=== PATIENT | female | born 1995 | race African-American/Black ===

== ENCOUNTER 2019-09-12 13:13 | Emergency (ER) | payer BC, OTHER ==
[2019-09-12 15:35] LABS: Absolute Lymphocytes (CBC) 2.2 K/uL (0.7-4.9); Basophils % 0.5 % (0-1.3); Hematocrit 41.1 % (36.0-45.0); Lymphocytes % 15.8 % (15.3-44.8); MPV 9.5 fL (7.6-11.3); RBC Red Blood Cell Count 4.83 M/uL (3.86-4.86)
[2019-09-12 16:11] LABS: BUN Blood Urea Nitrogen 8 mg/dL (7-18); Bicarbonate 25 mmol/L (21-32); Glucose Level 85 mg/dL (74-106); HCG, Quantitative 18392 mIU/mL (1-3); Potassium 3.6 mmol/L (3.5-5.1); Sodium Level 135 mmol/L (136-145)
--- NOTE | 2019-09-12 16:35 | RAD REPORT ---
EXAM DESCRIPTION: US - Transvaginal OB - 09/12/2019 4:23 pm CLINICAL HISTORY: ABD CRAMPING, COMPARISON: No comparisons FINDINGS: A single gestational sac is seen within the uterus. The shape of the sac is within normal limits for gestational age. Within the sac is a single pole with crown-rump length of 2 mm, cor relating to estimated gestational age of 6 weeks 0 days. Estimated date of delivery is 05/07/2020. Despite prolonged sonographic evaluation heart could not yet be seen. The placenta is not yet developed due to early gestational age. The maternal adnexa and ovaries are within normal limits. Normal Doppler blood flow was demonstrated to both ovaries. IMPRESSION: Six weeks 0 days early IUP findings are present. heart tones were not seen, which can be a normal finding at this gestational age. Advise serial HCG measurements and follow-up ultraso und in 7-10 days.
[2019-09-12 17:08] VITALS: TEMP 98.6
[2019-09-12 17:10] VITALS: O2SAT 100
[2019-09-12 17:13] VITALS: BP 107/73
[2019-09-12 21:57] LABS: Urine Blood TRACE (NEG); Urine Glucose NEGATIVE (NEG); Urine Protein NEGATIVE (NEG); Urine Specific Gravity 1.025 (1.005-1.030)
--- NOTE | 2019-09-14 18:06 | ER ---
Nurse's Notes [facility] Name: Kyleigh Akbar Age: 24 yrs Sex: Female : 1995 Arrival Date: 09/12/2019 Time: 13:16 Bed 16 Private MD: Diagnosis: Abdominal and pelvic pain;6 wk, 2 d IUP Presentation: 09/11 13:22 Chief complaint: Patient states: found out she is 4 weeks , for about 2 weeks em has been having severe suprapubic pain around the same time [id number], denies bleeding/discharge, has had a previous miscarriage at 3 months, denies N/V or fever. Coronavirus screen: Proceed with normal triage. Patient denies a cough. Patient denies shortness of breath or difficulty breathing. Patient denies measured and/or subjective temperature greater than 100.4F prior to today's visit. Patient denies travel on a cruise ship or to a country the [facility] currently lists as an affected area. Patient denies contact with known and/or suspected case of COVID-19. Ebola Screen: Patient negative for fever greater than or equal to 101.5 degrees Fahrenheit, and additional compatible Ebola Virus Disease symptoms Patient denies exposure to infectious person. Patient denies travel to an Ebola-affected area in the 21 days before illness onset. No symptoms or risks identified at this time. Initial Sepsis Screen: Does the patient meet any 2 criteria? No. Patient's initial sepsis screen is negative. Does the patient have a suspected source of infection? No. Patient's initial sepsis screen is negative. Risk Assessment: Do you want to hurt yourself or someone else? Patient reports no desire to harm self or others. 13:22 Method Of Arrival: Ambulatory em 13:22 Acuity: AGNES 3 em 13:27 Onset of symptoms was August 25, 2019. 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 - Social history:: Smoking status: Patient denies any tobacco usage or history of. Screenin:35 Abuse screen: Denies threats or abuse. Denies injuries from another. Nutritional ca1 screening: No deficits noted. Tuberculosis screening: No symptoms or risk factors identified. Fall Risk None identified. Assessment: 13:35 General: Appears in no apparent distress. comfortable, Behavior is calm, cooperative, ca1 appropriate for age. Pain: Complains of pain in suprapubic area, right lower quadrant and left lower quadrant Pain radiates to low back area Pain currently is 4 out of 10 on a pain scale. Pain began 2 WEEKS. Neuro: Level of Consciousness is awake, alert, obeys commands, Oriented to person, place, time, situation. Cardiovascular: Heart tones S1 S2 present Capillary refill < 3 seconds Patient's skin is warm and dry. Respiratory: Airway is patent Respiratory effort is even, unlabored, Breath sounds are clear bilaterally. GI: Abdomen is round non-distended, Bowel sounds present X 4 quads. Abd is soft and non tender X 4 quads. : No signs and/or symptoms were reported regarding the genitourinary system. : Urine is clear. EENT: No signs and/or symptoms were reported regarding the EENT system. Derm: Skin is intact, is healthy with good turgor, Skin is pink, warm \T\ dry. Musculoskeletal: Circulation, motion, and sensation intact. Capillary refill < 3 seconds. 14:30 Reassessment: Patient appears in no apparent distress at this time. Patient and/or ca1 family updated on plan of care and expected duration. Pain level reassessed. Patient is alert, oriented x 3, equal unlabored respirations, skin warm/dry/pink. 15:30 Reassessment: Patient appears in no apparent distress at this time. Patient is alert, ca1 oriented x 3, equal unlabored respirations, skin warm/dry/pink. 15:45 Reassessment: US at bedside. ca1 16:35 Reassessment: Patient appears in no apparent distress at this time. Patient and/or ca1 family updated on plan of care and expected duration. Pain level reassessed. Patient is alert, oriented x 3, equal unlabored respirations, skin warm/dry/pink. Vital Signs: 13:22 BP 128 / 88; Pulse 84; Resp 18; Temp 98.6(O); Pulse Ox 99% on R/A; Weight 83.46 kg; em Height 5 ft. 2 in. (157.48 cm); Pain 2/10; 14:06 BP 112 / 76; Pulse 81; Resp 16 S; Pulse Ox 100% on R/A; ca1 15:00 BP 118 / 82; Pulse 82; Resp 16 S; Pulse Ox 100% on R/A; ca1 16:35 BP 107 / 73; Pulse 81; Resp 16 S; Pulse Ox 100% on R/A; ca1 13:22 Body Mass Index 33.65 (83.46 kg, 157.48 cm) em ED Course: 13:16 Patient arrived in ED. as 13:19 Savage El MD is Attending Physician. kdr 13:26 Triage completed. em 13:26 Arm band placed on. em 13:34 Mirtha Mckeon, RN is Primary Nurse. ca1 13:35 Patient has correct armband on for positive identification. Bed in low position. Call ca1 light in reach. Side rails up X 1. Pulse ox on. NIBP on. Warm blanket given. 13:46 Urine collected: clean catch specimen, clear. em 15:19 Inserted saline lock: 20 gauge in left antecubital area, using aseptic technique. dh4 16:18 Ultrasound completed. Patient tolerated well. Notified ED Physician gregorio. sg3 16:23 US Transvaginal Ob In Process Unspecified. EDMS 16:59 No provider procedures requiring assistance completed. IV discontinued, intact, em bleeding controlled, No redness/swelling at site. Pressure dressing applied. Administered Medications: No medications were administered Outcome: 16:37 Discharge ordered by . kdr 16:59 Discharged to home ambulatory. em 16:59 Condition: good 16:59 Discharge instructions given to patient, Instructed on discharge instructions, follow up and referral plans. Demonstrated understanding of instructions, follow-up care. 17:00 Patient left the ED. em Signatures: Dispatcher [employer] EDMS Savage El MD MD kdr Munoz, Edgar RN RN em Amber Brown Sarah sg3 Mirtha Mckeon RN RN ca1 [place] 4 Corrections: (The following items were deleted from the chart) 13:28 13:22 Chief complaint: Patient states: found out she is 4 weeks , ever since em has been having severe suprapubic pain around the same time [id number], denies bleeding/discharge, has had a previous miscarriage at 3 months, denies N/V or fever em
--- NOTE | 2019-09-14 18:07 | EDPHYS ---
Physician Documentation [facility] Name: Kyleigh Akbar Age: 24 yrs Sex: Female : 1995 Arrival Date: 09/12/2019 Time: 13:16 Bed 16 Private MD: ED Physician Savage El HPI: 09/11 17:34 This 24 yrs old Black Female presents to ER via Ambulatory with complaints of Abdominal kdr Cramping - preg. 17:36 The patient presents with abdominal pain in the lower abdomen. Onset: The kdr symptoms/episode began/occurred gradually, 2 week(s) ago. The symptoms do not radiate. Associated signs and symptoms: none. The symptoms are described as achy, crampy, dull, vague, waxing/waning, had been sharp until a few days ago. Modifying factors: The symptoms are alleviated by nothing. Severity of pain: At its worst the pain was mild moderate just prior to arrival, in the emergency department the pain is unchanged. The patient has not experienced similar symptoms in the past. The patient has not recently seen a physician. 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 - Social history:: Smoking status: Patient denies any tobacco usage or history of. ROS: 17:36 Constitutional: Negative for fever, chills, and weight loss, Eyes: Negative for injury, kdr pain, redness, and discharge, ENT: Negative for injury, pain, and discharge, Neck: Negative for injury, pain, and swelling, Cardiovascular: Negative for chest pain, palpitations, and edema, Respiratory: Negative for shortness of breath, cough, wheezing, and pleuritic chest pain, Back: Negative for injury and pain, : Negative for injury, bleeding, discharge, and swelling, MS/Extremity: Negative for injury and deformity, Skin: Negative for injury, rash, and discoloration, Neuro: Negative for headache, weakness, numbness, tingling, and seizure activity. Psych: Negative for depression, anxiety, suicide ideation, homicidal ideation, and hallucinations, Allergy/Immunology: Negative for hives, rash, and allergies, Endocrine: Negative for neck swelling, polydipsia, polyuria, polyphagia, and marked weight changes, Hematologic/Lymphatic: Negative for swollen nodes, abnormal bleeding, and unusual bruising. 17:36 Abdomen/GI: Positive for abdominal pain, Negative for nausea, vomiting, and diarrhea, abdominal cramps, abdominal distension, black/tarry stool, rectal pain, rectal bleeding, bowel incontinence. Exam: 17:36 Constitutional: This is a well developed, well nourished patient who is awake, alert, kdr and in no acute distress. Head/Face: Normocephalic, atraumatic. Eyes: Pupils equal round and reactive to light, extra-ocular motions intact. Lids and lashes normal. Conjunctiva and sclera are non-icteric and not injected. Cornea within normal limits. Periorbital areas with no swelling, redness, or edema. Neck: Trachea midline, no thyromegaly or masses palpated, and no cervical lymphadenopathy. Supple, full range of motion without nuchal rigidity, or vertebral point tenderness. No Meningismus. Chest/axilla: Normal chest wall appearance and motion. Nontender with no deformity. No lesions are appreciated. Cardiovascular: Regular rate and rhythm with a normal S1 and S2. No gallops, murmurs, or rubs. Normal PMI, no JVD. No pulse deficits. Respiratory: Lungs have equal breath sounds bilaterally, clear to auscultation and percussion. No rales, rhonchi or wheezes noted. No increased work of breathing, no retractions or nasal flaring. Back: No spinal tenderness. No costovertebral tenderness. Full range of motion. Skin: Warm, dry with normal turgor. Normal color with no rashes, no lesions, and no evidence of cellulitis. MS/ Extremity: Pulses equal, no cyanosis. Neurovascular intact. Full, normal range of motion. Neuro: Awake and alert, GCS 15, oriented to person, place, time, and situation. Cranial nerves II-XII grossly intact. Motor strength 5/5 in all extremities. Sensory grossly intact. Cerebellar exam normal. Normal gait. Psych: Awake, alert, with orientation to person, place and time. Behavior, mood, and affect are within normal limits. 17:36 Abdomen/GI: Inspection: abdomen appears normal, Bowel sounds: normal, Palpation: soft, nontender, mass, is not appreciated, rebound tenderness, is not appreciated, voluntary guarding, is not appreciated. Vital Signs: 13:22 BP 128 / 88; Pulse 84; Resp 18; Temp 98.6(O); Pulse Ox 99% on R/A; Weight 83.46 kg; em Height 5 ft. 2 in. (157.48 cm); Pain 2/10; 14:06 BP 112 / 76; Pulse 81; Resp 16 S; Pulse Ox 100% on R/A; ca1 15:00 BP 118 / 82; Pulse 82; Resp 16 S; Pulse Ox 100% on R/A; ca1 16:35 BP 107 / 73; Pulse 81; Resp 16 S; Pulse Ox 100% on R/A; ca1 13:22 Body Mass Index 33.65 (83.46 kg, 157.48 cm) em MDM: 16:33 Data reviewed: vital signs, nurses notes, lab test result(s), radiologic studies. kdr Counseling: I had a detailed discussion with the patient and/or guardian regarding: the historical points, exam findings, and any diagnostic results supporting the discharge/admit diagnosis, lab results, radiology results, the need for outpatient follow up. ED course: 6 wk, 2D IUP per tech. Some fluid around right ovary but otherwise normal IUP. 16:37 Patient medically screened. [facility] 09/11 14:02 Order name: Urine Dipstick--Ancillary (enter results) eb 09/11 14:02 Order name: Urine --Ancillary (enter results) eb 09/11 15:01 Order name: Quantitative Hcg kdr 09/11 15:01 Order name: Abo/rh Typing kdr 09/11 15:01 Order name: Basic Metabolic Panel kdr 09/11 15:01 Order name: CBC with Diff kdr 09/11 13:50 Order name: Urine Dipstick-Ancillary (obtain specimen); Complete Time: 13:50 ca1 09/11 13:50 Order name: Urine Test (obtain specimen); Complete Time: 13:50 ca1 09/11 15:01 Order name: US Transvaginal Ob [facility] 09/11 15:01 Order name: IV Saline Lock; Complete Time: 15:37 kdr 09/11 15:01 Order name: Labs collected and sent; Complete Time: 15:37 kdr 09/11 15:01 Order name: NPO; Complete Time: 15:37 kdr Administered Medications: No medications were administered Disposition: 09/12/19 16:37 Discharged to Home. Impression: Abdominal and pelvic pain, 6 wk, 2 d IUP. - Condition is Stable. - Discharge Instructions: Abdominal Pain, Adult, [id number], Abdominal Pain During , [id number]. - Medication Reconciliation Form, Thank You Letter form. - Follow up: Private Physician; When: 2 - 3 days; Reason: If symptoms return, Further diagnostic work-up, Recheck today's complaints, Continuance of care, Re-evaluation by your physician. - Problem is new. - Symptoms have improved. Signatures: Dispatcher [employer] Savage Hensley MD MD kdr Marciano Nazario, RN RN em Linda, Mirtha RN RN ca1 Corrections: (The following items were deleted from the chart) 17:00 16:37 09/12/2019 16:37 Discharged to Home. Impression: Abdominal and pelvic pain; 6 wk, em 2 d IUP. Condition is Stable. Forms are Medication Reconciliation Form, Thank You Letter, Antibiotic Education, Prescription Opioid Use. Follow up: Private Physician; When: 2 - 3 days; Reason: If symptoms return, Further diagnostic work-up, Recheck today's complaints, Continuance of care, Re-evaluation by your physician. Problem is new. Symptoms have improved. kdr
== END 2019-09-12 17:00 | disposition home or self-care (01) ==
LOC: ER 13:13
DX: O26.891 Other specified pregnancy related conditions, first trimester (principal); Z3A.01 Less than 8 weeks gestation of pregnancy; Z88.0 Allergy status to penicillin
CPT/HCPCS: 36415; 76817; 80048; 81003; 81025; 84702; 85025; 86900; 86901; 99284

== ENCOUNTER 2021-05-05 08:07 | Emergency (ER) | payer BC ==
--- OUTSIDE RECORDS SUMMARY | 2021-05-05 08:11 | XMS REPORT | Continuity of Care Document ---
:1995 Author Organization [facility] t Address [address] [place] [address] Care Team Providers Name Role Phone Yong MUELLER Primary Care Physician Unavailable Nina GONZALEZ Attending Clinician Unavailable Nurse, Pob Immunization Attending Clinician Unavailable Chet Cali DO Attending Clinician CHET CALI Attending Clinician Unavailable Ángel CENTENO Attending Clinician ÁNGEL Attending Clinician Unavailable Wiliam CENTENO Attending Clinician Provider, Db [facility]gent [facility] Attending Clinician Unavailable Altaf BEHAVIORAL SPECIALIST Attending Clinician ALTAF Attending Clinician Unavailable Ebrahim BEHAVIORAL SPECIALIST Attending Clinician Unknown Attending Clinician Unavailable UNKNOWN Attending Clinician Unavailable Nba Quinteros MD Attending Clinician HILLARY_Nina Attending Clinician Unavailable SHIVANI Attending Clinician Unavailable Nina GASPAR Attending Clinician Unavailable Maureen English Attending Clinician [phone] Yong MUELLER Attending Clinician Unavailable Cindy DE LEÓN Attending Clinician Unavailable RENNY CENTENO Attending Clinician ANISH CENTENO Attending Clinician HILLARY_Nina Admitting Clinician Unavailable Payers Payer Name Policy Type Policy Number Effective Date Expiration Date S ann[place] [id number] 2018 [place] 00:[place]:00 (PPO) BCBS OF [id number] [facility] Problems Condition Condition Condition Status Onset Resolution Last Treating Co mments Source Name Details Category Date Date Treatment Clinician Date Obesity Obesity Disease Active Univers (BMI (BMI 9-28 ity of 30-39.9) 30-39.9) 00:00: [place] 00 Medical Branch Anxiety Anxiety Disease Active 2019- Univers 11-24 ity of 00:00: [place] 00 Medical Branch Allergies, Adverse Reactions, Alerts Allergy Allergy Status Severity Reaction(s) Onset Inactive Treating Comm ents Source Name Type Date Date Clinician Penicill Propensi Active Unknown - Uni vers in ty to See comments 11-24 ity of adverse 00:00: [place] reaction 00 Medical s Branch PENICILL DRUG Active Unknown-Cmnt Un david IN INGREDI 8 ity of 00:00: [place] 00 Medical Branch NO KNOWN Drug Active Univers ALLERGIE Class ity of S [place] [facility] Social History Social Habit Start Date Stop Date Quantity Comments Source Exposure to Not sure [facility] SARS-CoV-2 (event) Medica l Branch History [facility] Alcohol Comment Medical B ranch Alcohol intake 2021-02-20 2021-02-20 .57 /d [facility] 00:00:00 00:00:00 Medical Branch History [facility] 2019-11-25 2019-11-25 1 [facility] Alcohol Frequency 00:00:00 00:00:00 Medical Branch History [facility] 2019-11-25 2019-11-25 99 [facility] Alcohol Std Drinks 00:00:00 00:00:00 Medica l Branch History [facility] 2019-11-25 2019-11-25 1 [facility] Alcohol Binge 00:00:00 00:00:00 Medical [facility] Tobacco use and 2018-11-24 2018-11-24 Never used [facility] exposure 00:00:00 00:00:00 Medical Branch Sex [birth year] [facility] 00:00:00 00:00:00 Medical Branch Smoking Status Start Date Stop Date Source Never smoker [facility] Medical Branch Medications Ordered Filled Start Stop Current Ordering Indication Dosage Frequency Signature Comments Components Source Medication Medication Date Date Medication? Clinician (SIG) Name Name SERTRALINE 2020-04 Yes [id number] TAKE 1 U nivers 100 mg 1-11 TABLET BY ity of tablet 00:00: MOUTH [place] 00 EVERY DAY Medical Branch SERTRALINE 2020-04 Yes [id number] TAKE 1 U nivers 100 mg 1-11 TABLET BY ity of tablet 00:00: MOUTH [place] 00 EVERY DAY Medical Branch SERTRALINE 2020-04 Yes [id number] TAKE 1 U nivers 100 mg 1-11 TABLET BY ity of tablet 00:00: MOUTH [place] 00 EVERY DAY Medical Branch albuterol 2020-04- No [id number] 2{puff} Univers (VENTOLIN) 04-22 ity of inhaler 2 18:45: 17:51 [place] Puff 00 :00 Medical Branch albuterol 2020-04- No [id number] 2{puff} 2 Puff, Univers (VENTOLIN) 04-22 Inhalation it y of inhaler 2 18:45: 17:51 [place] 1 [place] :[place] dose, On Medical Mon Branch 02/20/21 at 1245, Routine azelastine 2020-04 Yes [id number] 1{spray Use 1 Univers 137 mcg 1-08 } [place] in ity of (0.1 %) 00:00: each [place] nasal spray 00 nostril 2 Med ical (two) Branch times daily. Use in each nostril as directed benzonatate 2020-04 Yes [id number] 200mg Take 2 Univers 100 mg 1-08 capsules ity of capsule 00:00: [place] (two) Medical times Branch daily as needed for Cough. codeine-gua 2020-04 Yes 5mL Take 5 mL U nivers ifenesin 1-08 by mouth ity of 10-100 mg/5 00:00: every 6 Gurinder as mL oral 00 (six) Medical solution hours as Branch needed for Cough. Indication s: cough guaiFENesin 2020-04 Yes [id number] 400mg Take 1 Univers 400 mg 1-08 tablet by ity of tablet 00:00: mouth [place] 00 every 4 Medical (four) Branch hours as needed for Cough. azelastine 2020-04 Yes [id number] 1{spray Use 1 Univers 137 mcg 1-08 } [place] in ity of (0.1 %) 00:00: each [place] nasal spray 00 nostril 2 Med ical (two) Branch times daily. Use in each nostril as directed benzonatate 2020-04 Yes [id number] 200mg Take 2 Univers 100 mg 1-08 capsules ity of capsule 00:00: [place] (two) Medical times Branch daily as needed for Cough. codeine-gua 2020-04 Yes 5mL Take 5 mL U nivers ifenesin 1-08 by mouth ity of 10-100 mg/5 00:00: every 6 Gurinder as mL oral 00 (six) Medical solution hours as Branch needed for Cough. Indication s: cough guaiFENesin 2020-04 Yes [id number] 400mg Take 1 Univers 400 mg 1-08 tablet by ity of tablet 00:00: mouth [place] 00 every 4 Medical (four) Branch hours as needed for Cough. azelastine 2020-04 Yes [id number] 1{spray Use 1 Univers 137 mcg 1-08 } [place] in ity of (0.1 %) 00:00: each [place] nasal spray 00 nostril 2 Med ical (two) Branch times daily. Use in each nostril as directed benzonatate 2020-04 Yes [id number] 200mg Take 2 Univers 100 mg 1-08 capsules ity of capsule 00:00: [place] 2 [place] 00 (two) Medical times Branch daily as needed for Cough. codeine-gua 2020-04 Yes 5mL Take 5 mL U nivers ifenesin 1-08 by mouth ity of 10-100 mg/5 00:00: every 6 Gurinder as mL oral 00 (six) Medical solution hours as Branch needed for Cough. Indication s: cough guaiFENesin 2020-04 Yes [id number] 400mg Take 1 Univers 400 mg 1-08 tablet by ity of tablet 00:00: mouth [place] 00 every 4 Medical (four) Branch hours as needed for Cough. amoxicillin 2020-04- Yes [id number] 1{tbl} Take 1 Univers -clavulanat 1-08 11-16 tablet by it y of e 00:00: 05:59 mouth 2 [place] (AUGMENTIN) 00 :00 (two) Medical 875-125 mg times Branch per tablet daily for 7 days. bromphenira 2020-04 Yes [id number] 5mL Take 5 mL Univers mine-pseudo 0-18 by mouth 4 it y of ephedrine-D 00:00: (four) [place] (BROMFED 00 times Medical DM) 2-30-10 daily as Bran ch mg/5 mL needed for syrup Congestion /Allergies or Cough. bromphenira 2020-04 Yes [id number] 5mL Take 5 mL Univers mine-pseudo 0-18 by mouth 4 it y of ephedrine-D 00:00: (four[place] (BROMFED 00 times Medical DM) 2-30-10 daily as Bran ch mg/5 mL needed for syrup Congestion /Allergies or Cough. bromphenira 2020-04 Yes [id number] 5mL Take 5 mL Univers mine-pseudo 0-18 by mouth 4 it y of ephedrine-D 00:00: (four[place] (BROMFED 00 times Medical DM) 2-30-10 daily as Bran ch mg/5 mL needed for syrup Congestion /Allergies or Cough. bromphenira 2020-04- No [id number] 5mL Take 5 mL Univers mine-pseudo 0-18 11-08 by mouth 4 i ty of ephedrine-D 00:00: 00:00 (four) Gurinder as M (BROMFED 00 :00 times Medical DM) 2-30-10 daily as Bran ch mg/5 mL needed for syrup Congestion /Allergies or Cough. penicillin 2020-04- No [id number] 500mg Take 1 Univers v potassium 0-14 10-25 tablet by it y of 500 mg 00:00: 04:59 mouth 2 [place] tablet 00 :00 (two) Medical times Branch daily for 10 days. penicillin 2020-04- No [id number] 500mg Take 1 Univers v potassium 0-14 10-25 tablet by it y of 500 mg 00:00: 04:59 mouth 2 [place] tablet 00 :00 (two) Medical times Branch daily for 10 days. penicillin 2020-04- No [id number] 500mg Take 1 Univers v potassium 0-14 10-25 tablet by it y of 500 mg 00:00: 04:59 mouth 2 [place] tablet 00 :00 (two) Medical times Branch daily for 10 days. penicillin 2020-04- No [id number] 500mg Take 1 Univers v potassium 0-14 10-25 tablet by it y of 500 mg 00:00: 04:59 mouth 2 [place] tablet 00 :00 (two) Medical times Branch daily for 10 days. SERTraline Yes [id number] 100mg Take 1 Univers (ZOLOFT) 9-30 tablet by ity of 100 mg 00:00: mouth [place] tablet 00 daily. Medical Branch SERTraline 2020-0 Yes [id number] 100mg Take 1 Univers (ZOLOFT) 9-30 tablet by ity of 100 mg 00:00: mouth [place] tablet 00 daily. Medical Branch methylPREDN 2020-0 Yes Univer s ISolone 4 9-30 ity of mg tablets 00:00: [place] 00 Medical Branch SERTraline 2020-0 Yes [id number] 100mg Take 1 Univers (ZOLOFT) 9-30 tablet by ity of 100 mg 00:00: mouth [place] tablet 00 daily. Medical Branch methylPREDN 2020-0 Yes Univer s ISolone 4 9-30 ity of mg tablets 00:00: [place] 00 Medical Branch SERTraline 2020-0 Yes [id number] 100mg Take 1 Univers (ZOLOFT) 9-30 tablet by ity of 100 mg 00:00: mouth [place] tablet 00 daily. Medical Branch methylPREDN 2020-0 Yes Univer s ISolone 4 9-30 ity of mg tablets 00:00: [place] 00 [facility] Branch SERTraline 2020-0 Yes [id number] 100mg Take 1 Univers (ZOLOFT) 9-30 tablet by ity of 100 mg 00:00: mouth [place] tablet 00 daily. Medical Branch methylPREDN 2020-0 Yes Univer s ISolone 4 9-30 ity of mg tablets 00:00: [place] 00 [facility] Branch SERTraline 2020-0 Yes [id number] 100mg Take 1 Univers (ZOLOFT) 9-30 tablet by ity of 100 mg 00:00: mouth [place] tablet 00 daily. Medical Branch methylPREDN 2020-0 Yes Univer s ISolone 4 9-30 ity of mg tablets 00:00: [place] 00 Medical Branch methylPREDN 2020-0 Yes Univer s ISolone 4 9-30 ity of mg tablets 00:00: [place] 00 Medical Branch methylPREDN 2020-0 Yes Univer s ISolone 4 9-30 ity of mg tablets 00:00: [place] 00 Medical Branch methylPREDN 2020-0 Yes Univer s ISolone 4 9-30 ity of mg tablets 00:00: [place] 00 Medical Branch SERTraline 2020-0 2021- No [id number] 100mg Take 1 Univers (ZOLOFT) 9-30 11-11 tablet by ity o f 100 mg 00:00: 00:00 mouth [place] tablet 00 :00 daily. Medical Branch drospirenon 2020-0 Yes [id number] 1{tbl} Take 1 Univers e-ethinyl 9-28 tablet by ity o f estradioL 00:00: mouth [place] ([facility],) 00 daily. Medical 3-0.02 mg Branch per tablet drospirenon 2020-0 Yes [id number] 1{tbl} Take 1 Univers e-ethinyl 9-28 tablet by ity o f estradioL 00:00: mouth [place] ([facility],) 00 daily. Medical 3-0.02 mg Branch per tablet drospirenon 2020- Yes [id number] 1{tbl} Take 1 Univers e-ethinyl 9-28 tablet by ity o f estradioL 00:00: mouth [place] ([facility],) 00 daily. Medical 3-0.02 mg Branch per tablet drospirenon 2020- Yes [id number] 1{tbl} Take 1 Univers e-ethinyl 9-28 tablet by ity o f estradioL 00:00: mouth [place] ([facility],) 00 daily. Medical 3-0.02 mg Branch per tablet drospirenon 2020- Yes [id number] 1{tbl} Take 1 Univers e-ethinyl 9-28 tablet by ity o f estradioL 00:00: mouth [place] ([facility],) 00 daily. Medical 3-0.02 mg Branch per tablet drospirenon 2020-0 Yes [id number] 1{tbl} Take 1 Univers e-ethinyl 9-28 tablet by ity o f estradioL 00:00: mouth [place] ([facility],) 00 daily. Medical 3-0.02 mg Branch per tablet drospirenon 2020-0 Yes [id number] 1{tbl} Take 1 Univers e-ethinyl 9-28 tablet by ity o f estradioL 00:00: mouth [place] ([facility],) 00 daily. Medical 3-0.02 mg Branch per tablet drospirenon 2020-0 Yes [id number] 1{tbl} Take 1 Univers e-ethinyl 9-28 tablet by ity o f estradioL 00:00: mouth [place] (, ,) 00 daily. Medical 3-0.02 mg Branch per tablet drospirenon Yes [id number] 1{tbl} Take 1 Univers e-ethinyl 9-28 tablet by adriana o f estradioL 00:00: mouth [place] (, ,) 00 daily. Medical 3-0.02 mg Branch per tablet Immunizations Ordered Filled Immunization Date Status Comments [facility] e Immunization Name Name SARS-COV-2 COVID-19 2021-04-25 Completed Unive rsity of PFIZER VACCINE 00:00:00 [facility] Branch SARS-COV-2 COVID-19 2020-07-14 Completed Unive rsity of PFIZER VACCINE 00:00:00 [facility] Branch SARS-COV-2 COVID-19 2020-07-14 Completed Unive rsity of PFIZER VACCINE 00:00:00 [facility] SARS-COV-2 COVID-19 2020-07-14 Completed Unive rsity of PFIZER VACCINE 00:00:00 [facility] SARS-COV-2 COVID-19 2020-07-14 Completed Unive rsity of PFIZER VACCINE 00:00:00 [facility] Branch SARS-COV-2 COVID-19 2020-07-14 Completed Unive rsity of PFIZER VACCINE 00:00:00 [facility] SARS-COV-2 COVID-19 2020-07-14 Completed Unive rsity of PFIZER VACCINE 00:00:00 [facility] SARS-COV-2 COVID-19 2020-07-14 Completed Unive rsity of PFIZER VACCINE 00:00:00 [facility] Branch SARS-COV-2 COVID-19 2020-07-14 Completed Unive rsity of PFIZER VACCINE 00:00:00 [facility] Branch SARS-COV-2 COVID-19 2020-07-14 Completed Unive rsity of PFIZER VACCINE 00:00:00 [facility] SARS-COV-2 COVID-19 2020-06-23 Completed Unive rsity of PFIZER VACCINE 00:00:00 [facility] SARS-COV-2 COVID-19 2020-06-23 Completed Unive rsity of PFIZER VACCINE 00:00:00 [facility] SARS-COV-2 COVID-19 2020-06-23 Completed Unive rsity of PFIZER VACCINE 00:00:00 [facility] SARS-COV-2 COVID-19 2020-06-23 Completed Unive rsity of PFIZER VACCINE 00:00:00 [facility] SARS-COV-2 COVID-19 2020-06-23 Completed Unive rsity of PFIZER VACCINE 00:00:00 [facility] SARS-COV-2 COVID-19 2020-06-23 Completed Unive rsity of PFIZER VACCINE 00:00:00 [facility] SARS-COV-2 COVID-19 2020-06-23 Completed Unive rsity of PFIZER VACCINE 00:00:00 [facility] SARS-COV-2 COVID-19 2020-06-23 Completed Unive rsity of PFIZER VACCINE 00:00:00 [facility] SARS-COV-2 COVID-19 2020-06-23 Completed Unive rsity of PFIZER VACCINE 00:00:00 [facility] Vital Signs Vital Name Observation Time Observation Value Comments Source Systolic blood 2021-02-20 17:32:00 114 mm[Hg] Univer sity of pressure [facility] Diastolic blood 2021-02-20 17:32:00 79 mm[Hg] Unive rsity of pressure [facility] Heart rate 2021-02-20 17:32:00 100 /min [facility] Body temperature 2021-02-20 17:32:[address] [facility] rate 2021-02-20 17:32:00 20 /min [facility] Body weight 2021-02-20 17:32:00 87.408 kg [facility] BMI 2021-02-20 17:32:00 35.25 kg/m2 [facility] Oxygen saturation in 2021-02-20 17:32:00 97 /min [facility] Arterial blood by [facility] Pulse oximetry Branch Systolic blood 2021-01-30 22:41:00 117 mm[Hg] Univer sity of pressure [facility] Diastolic blood 2021-01-30 22:41:00 85 mm[Hg] Unive rsity of pressure [facility] Heart rate 2021-01-30 22:41:00 99 /min [facility] Body temperature 2021-01-30 22:41:[address] [facility] ersity of [facility] Respiratory rate 2021-01-30 22:41:00 18 /min [facility] ersity of [facility] Body height 2021-01-30 22:41:00 157.5 cm Universi ty of [place] [facility] [place] Body weight 2021-01-30 22:41:00 88.905 kg Universi ty of [facility] BMI 2021-01-30 22:41:00 35.85 kg/m2 Universi ty of [facility] Oxygen saturation in 2021-01-30 22:41:00 97 /min University of Arterial blood by [facility] Pulse oximetry Branch Systolic blood 2021-01-26 18:31:00 115 mm[Hg] Univer sity of pressure [facility] Diastolic blood 2021-01-26 18:31:00 77 mm[Hg] [facility] Heart rate 2021-01-26 18:31:00 80 /min Universi ty of [facility] Body temperature 2021-01-26 18:31:00 36.44 Vivien [facility] Respiratory rate 2021-01-26 18:31:00 18 /min [facility] ersity [facility] Body height 2021-01-26 18:31:00 157.5 cm Universi ty of [facility] Body weight 2021-01-26 18:31:00 88.905 kg Universi ty of [facility] BMI 2021-01-26 18:31:00 35.85 kg/m2 Universi ty of [facility] Oxygen saturation in 2021-01-26 18:31:00 98 /min University of Arterial blood by [facility] Pulse oximetry Branch Procedures Procedure Date / Time Performed Performing Clinician Sour e SARS-COV-2 COVID-19 2021-04-25 16:15:15 Doctor Unassigned, No [facility] [place] VACCINE,0.3ML,IM Name [facility] Branch (PFIZER) XR CHEST 2 VW 2021-01-30 23:26:[address] [facility] POCT GRP A STREP 2021-01-26 00:00:00 Gracia Lizama [facility] INFLUENZA A & B 2018-06-24 00:00:00 [facility] A STREP SCREEN 2018-06-24 00:00:00 [facility] GROUP A STREP SCREEN 2018-06-24 00:00:00 [facility] CHEST 2 VIEWS 2018-06-24 00:00:00 [facility] Encounters Start End Encounter Admission Attending Care Care Encounter Source Date/Time Date/Time Type Type Clinicians Facility Department ID 2022-01-16 2022-01-16 Outpatient Heather GONZALEZ [facility] [id number] Univers 10:00:00 10:00:[id number] [facility] 2021-05-05 2021-05-05 Outpatient [facility] [id number] Univers 12:45:00 12:45:00 [id number] [facility] 2021-04-25 2021-04-25 Imm/Inj Nurse, Adc Pob Immunization [facility] [id number] Univers 09:30:00 09:34:13 Visit Sarkis Cali [id number] [facility] [id number] PROFESS[place] [id number] Nv dical [address] 2021-04-25 2021-04-25 Outpatient Heather CALI [facility] [id number] Univers 09:30:00 09:30:[address] [facility] 2021-03-15 2021-03-15 [facility] [id number] Univers 00:00:00 00:00:00 [facility] [id number] it y of [place] [id number] Gurinder as DONNELL?BLEA [phone] Nv dical [facility] [address] [facility] OFFICE BUILDING 2021-02-20 2021-02-20 Urgent Ángel [facility] [id number] Univers 11:28:51 11:48:51 Care [facility] [id number] it y of [place] [id number] Gurinder as DONNELL?BLEA [phone] Nv dical KNEY [address] [facility] OFFICE BUILDING 2021-02-20 2021-02-20 Outpatient R [facility] [id number] Univers 11:40:00 11:40:[id number] [facility] 2021-02-20 2021-02-20 [id number] Univers 11:40:00 11:40:[address] [facility] 2021-02-18 2021-02-18 [facility] [id number] Univers 00:00:00 00:00:00 Abimael HEALTH [id number] it y [facility] [id number] Gurinder as DONNELL?BLEA [phone] [facility] [address] [place] MEDICAL OFFICE [facility] 2021-02-01 2021-02-01 Telephone Provider, [facility] [id number] Univers 00:00:00 00:00:00 [facility] [id number] it y of Urgent Care [place] [id number] [place] Donnell?Blea [phone] [facility] [address] [place] [facility] 2021-01-30 2021-01-30 Hospital [facility] [id number] Univers 18:03:23 23:59:00 Encounter [facility] [id number] ity of [place] [id number] Gurinder as Donnell?Blea [phone] [facility] estevan [address] [place] [facility] 2021-01-30 2021-01-30 Urgent [facility] [id number] Univers 17:40:09 18:05:31 Care Kathia [facility] [id number] i ty of [place] [id number] Gurinder as Donnell?Blea [phone] [facility] [address] [place] [facility] 2021-01-30 2021-01-30 Outpatient R [facility] [id number] Univers 17:40:00 17:40:00 [id number] ity of [facility] 2021-01-30 2021-01-30 Outpatient R [facility] [id number] Univers 17:40:00 17:40:00 KATHIA itrm o f [facility] 2021-01-26 2021-01-26 Urgent Bjorn Parker [facility] [id number] Univers 13:26:48 13:48:23 Care Unknown, Attending Health [id number] ity of [place] [id number] Gurinder as Donnell?Blea [phone] Nv dical [place] [address] [place] [facility] Building 2021-01-26 2021-01-26 Outpatient R [facility] [id number] Univers 13:20:00 13:20:[id number] [facility] 2021-01-26 2021-01-26 Outpatient R UNKNOWN, [facility] [id number] Univers 13:20:00 13:20:[address] [facility] 2021-01-17 2021-01-17 Telephone Stephania Quinteros [facility] [id number] Univers 00:00:00 00:00:00 Cam [place] [id number] i ty of [place] [id number] [place] Professio [phone] Nv dicjaqui [facility] [address] Branch Building 2021-01-16 2021-01-16 Outpatient R [facility] [id number] Univers 17:15:00 17:15:00 [id number] [facility] 2021-01-16 2021-01-16 Outpatient R [facility] [id number] Univers 17:15:00 17:15:00 [facility] 2021-01-10 2021-01-10 Outpatient R ADUM, [facility] [id number] Univers 14:30:00 14:30:00 CHRISTI [id number] [facility] 2021-01-10 2021-01-10 Outpatient R ADUM, [facility] [id number] Univers 14:30:00 14:30:00 CHRISTI [facility] 2020-11-30 2020-11-30 Outpatient [facility] [place] 01:01:00 01:01:00 _L [id number] [facility] 2020-10-31 2020-10-31 Outpatient SHIVANI [facility] [id number] Univers 13:30:00 13:30:00 MAKEDA [id number] [facility] 2020-10-31 2020-10-31 Outpatient Heather PARRISH [facility] [id number] Univers 13:30:00 13:30:00 MAKEDA [facility] 2020-10-25 2020-10-25 [facility] [id number] [place] 01:42:00 01:42:00 _L [id number] [facility] 2020-10-24 2020-10-24 Outpatient [facility] [id number] [place] 02:30:00 02:30:00 _L 0712 [facility] 2020-10-15 2020-10-15 Outpatient [facility] [id number] [place] 02:15:00 02:15:00 _L [id number] [facility] 2020-09-11 2020-09-11 Outpatient [facility] [id number] [place] 01:01:00 01:01:00 _L [id number] [facility] 2020-09-09 2020-09-09 Outpatient Heather GASPAR [facility] [id number] Univers 08:15:00 08:15:00 RERE [facility] 2020-09-09 2020-09-09 Outpatient Heather GASPAR [facility] [id number] Univers 08:15:00 08:15:00 RERE [id number] [facility] 2020-08-18 2020-08-18 Outpatient [facility] [id number] 12:18:00 12:18:00 _L [facility] 2020-08-17 2020-08-17 Outpatient [facility] [id number] 12:36:00 12:36:00 _L 0505 [facility] 2020-08-17 2020-08-17 Outpatient [place] [facility] [id number] 00:00:00 00:00:00 , Simran [id number] Maureen [id number] 2020-08-12 2020-08-12 Outpatient R ERVIN, [facility] [id number] Univers 16:30:00 16:30:00 WONDIFUL [id number] ity o f [facility] 2020-08-12 2020-08-12 Outpatient R ERVIN, [facility] [id number] Univers 16:30:00 16:30:00 WONDIFUL ity o f [facility] 2020-07-14 2020-07-14 Outpatient R SARTHAK, [facility] [id number] Univers 08:30:00 08:30:[address] [facility] 2020-06-23 2020-06-23 Outpatient [facility] [id number] Univers 08:30:00 08:30:00 ity of [facility] 2019-11-25 2019-11-25 Outpatient R ERVIN, [facility] [id number] Univers 15:15:00 15:15:00 WONDIFUL [id number] ity o f [facility] 2019-11-25 2019-11-25 Outpatient R ERVIN, [facility] [id number] Univers 15:15:00 15:15:00 WONDIFUL ity o f [facility] 2019-11-23 2019-11-23 Outpatient R [facility] [id number] Univers 08:40:00 08:40:00 ity of [facility] 2019-11-23 2019-11-23 Outpatient R [facility] [id number] Univers 08:40:00 08:40:00 ity of [facility] 2019-11-23 2019-11-23 Outpatient R [facility] [id number] Univers 08:40:00 08:40:[address] [facility] 2019-10-26 2019-10-26 Outpatient [facility] [id number] Univers 14:20:00 14:20:[id number] [facility] 2019-10-26 2019-10-26 Outpatient R WILLIAMAMEENA, [facility] [id number] Univers 14:20:00 14:20:00 MAKEDA encisorm of [facility] 2018-06-25 2018-06-25 Departed RENNY, [facility] [id number] 14:15:00 16:13:00 Emergency [facility] 2018-06-24 2018-06-[address] [facility] [id number] 02:36:00 04:04:00 Emergency [facility] Results Test Description Test Time Test Comments Results Result Comments Source POCT GRP A STREP (MOLECULAR) 2021-01-26 18:35:00 Test Item Value Reference Range Interpretation Comme nts POCT GP A STREP (test code = pos Negative - Negative 70316-9) KELSEY (test code = KELSEY) accurate development and interpretation of all internal controls Lab Interpretation (test code = Abnormal 78864-7) [facility] [id number] 03:14:00 Test Item Value Reference Range Interpretation Comments Influenza Type A Antigen (test code NEGATIVE NEGATIVE = 42416-9) [facility] [id number] 03:14:00 Test Item Value Reference Range Interpretation Comments Influenza Type B Antigen (test code NEGATIVE NEGATIVE = 20340-5) *This test method is capable of detecting both viable andnon-viable influenza particles. Performancedepends on theantigen load and may not correlate with other diagnosticmethods performed on the same specimen. *Results of the FLUA+B test should be correlated with theclinical history, epidemiological data and other dataavailable to the clinician evaluating the patient.[facility] [id number] 03:14:00 Test Item Value Reference Range Interpretation Comments Influenza Type A Antigen (test code NEGATIVE NEGATIVE = 77184-8) [facility] [id number] 03:14:00 Test Item Value Reference Range Interpretation Comments Influenza Type B Antigen (test code NEGATIVE NEGATIVE = 23888-5) *This test method is capable of detecting both viable andnon-viable influenza particles. Performancedepends on theantigen load and may not correlate with other diagnosticmethods performed on the same specimen. *Results of the FLUA+B test should be correlated with theclinical history, epidemiological data and other dataavailable to the clinician evaluating the patient.[facility] Streptococcus [id number] 03:12:00 Test Item Value Reference Range Interpretation Comments Group A Streptococcus Screen (test NEGATIVE NEGATIVE code = Group A Streptococcus Screen) Negative screens will be confirmed by culture. Please seeseparate microbiology report for these results.[facility] SPECIMEN BLOODY OR MUCOID?2018-06-24 03:12:00 Test Item Value Reference Range Interpretation Comments IS SPECIMEN BLOODY OR MUCOID? (test NO NO code = IS SPECIMEN BLOODY OR MUCOID?) *This test will only indicate the presence of Strep Aantigen in the throat swab specimen from both viable andnon-viable Group A Streptococcus bacteria. It does notdetermine the qualitative concentration of Strep A antigen. *Respiratory infections can be caused by Streptococci ofserogroups other than Aas well as other pathogens. Thistest does not differentiate betweeen carriers and infectedindividuals. *As with all diagnostic tests, all results must beinterpreted together with other clinical informationavailable to the physician.[facility] Streptococcus [id number] 03:12:00 Test Item Value Reference Range Interpretation Comments Group A Streptococcus Screen (test NEGATIVE NEGATIVE code = Group A Streptococcus Screen) Negative screens will be confirmed by culture. Please seeseparate microbiology report for these results.[facility] SPECIMEN BLOODY OR MUCOID?2018-06-24 03:12:00 Test Item Value Reference Range Interpretation Comments IS SPECIMEN BLOODY OR MUCOID? (test NO NO code = IS SPECIMEN BLOODY OR MUCOID?) *This test will only indicate the presence of Strep Aantigen in the throat swab specimen from both viable andnon-viable Group A Streptococcus bacteria. It does notdetermine the qualitative concentration of Strep A antigen. *Respiratory infections can be caused by Streptococci ofserogroups other than Aas well as other pathogens. Thistest does not differentiate betweeen carriers and infectedindividuals. *As with all diagnostic tests, all results must beinterpreted together with other clinical informationavailable to the physician.[facility]
[2021-05-05 10:46] LABS: SARS-COV-2 RT PCR POSITIVE (NEGATIVE)
--- NOTE | 2021-05-05 10:48 | EDPHYS ---
Physician Documentation [facility] Name: Kyleigh Akbar Age: 26 yrs Sex: Female : 1995 Arrival Date: 05/05/2021 Time: 08:10 Bed 14 Private MD: None, None ED Physician Pa Williamson HPI: 05/05 09:10 This 26 yrs old Black Female presents to ER via Ambulatory with complaints of Cough, kb Congestion, Headache, Fever. 09:10 The patient or guardian reports cough, that is intermittent, described as mild, flu kb symptoms, low-grade fever, myalgias. Onset: The symptoms/episode began/occurred 3 day(s) ago. Severity of symptoms: At their worst the symptoms were moderate, in the emergency department the symptoms are unchanged. Modifying factors: The symptoms are alleviated by nothing, the symptoms are aggravated by nothing. Associated signs and symptoms: Pertinent positives: diarrhea, fever, nausea, sore throat, vomiting, Pertinent negatives: chest pain, ear ache. The patient has not experienced similar symptoms in the past. The patient has not recently seen a physician. Historical: - Allergies: 08:21 PENICILLINS; ss - PMHx: 08:21 None; ss - PSHx: 08:21 R ankle; ss - Immunization history:: Client reports receiving the 2nd dose of the Covid vaccine. - Social history:: Smoking status: Patient denies any tobacco usage or history of. ROS: 09:09 Cardiovascular: Negative for chest pain, palpitations, and edema. kb 09:09 Constitutional: Positive for body aches, chills, fatigue, fever, malaise. 09:09 ENT: Positive for sinus congestion. 09:09 Respiratory: Positive for cough, Negative for dyspnea on exertion, hemoptysis, orthopnea, pleurisy, shortness of breath, sputum production, wheezing. 09:09 All other systems are negative. Exam: 09:09 Constitutional: This is a well developed, well nourished patient who is awake, alert, kb and in no acute distress. Head/Face: Normocephalic, atraumatic. ENT: Moist Mucous membranes Cardiovascular: Regular rate and rhythm with a normal S1 and S2. No gallops, murmurs, or rubs. No pulse deficits. Respiratory: Respirations even and unlabored. No increased work of breathing. Talking in full sentences Skin: Warm, dry with normal turgor. Normal color. MS/ Extremity: Pulses equal, no cyanosis. Neurovascular intact. Full, normal range of motion. Neuro: Awake and alert, GCS 15, oriented to person, place, time, and situation. Moves all extremities. Normal gait. Psych: Awake, alert, with orientation to person, place and time. Behavior, mood, and affect are within normal limits. Vital Signs: 08:19 Resp 16; Temp 97.6(TE); Weight 86.18 kg; Height 5 ft. 2 in. (157.48 cm); Pain 6/10; ss 08:41 BP 119 / 81; Pulse 68; Resp 16; Temp 98.6; Pulse Ox 100% ; cb5 08:19 Body Mass Index 34.75 (86.18 kg, 157.48 cm) ss MDM: 08:11 Patient medically screened. kb 09:09 Data reviewed: vital signs, nurses notes. Data interpreted: Pulse oximetry: on room air kb is 100 %. Interpretation: normal. 10:47 Counseling: I had a detailed discussion with the patient and/or guardian regarding: the kb historical points, exam findings, and any diagnostic results supporting the discharge/admit diagnosis, lab results, the need for outpatient follow up, a family practitioner, to return to the emergency department if symptoms worsen or persist or if there are any questions or concerns that arise at home. 05/05 08:17 Order name: COVID-19/FLU A+B (Document "Date of Onset" if Symptomatic); Complete Time: kb 10:47 Administered Medications: No medications were administered Disposition Summary: 05/05/21 10:48 Discharge Ordered Location: Home kb Condition: Stable kb Diagnosis - Coronavirus infection, unspecified kb Followup: kb - With: Emergency Department - When: As needed - Reason: Worsening of condition Followup: kb - With: Private Physician - When: 2 - 3 days - Reason: Recheck today's complaints, Continuance of care, Re-evaluation by your physician Discharge Instructions: - Discharge Summary Sheet kb - Viral Respiratory Infection, [id number] kb - COVID-19 kb Forms: - Medication Reconciliation Form kb - Thank You Letter kb - Antibiotic Education kb - Prescription Opioid Use kb Addendum: 05/07/2021 07:05 Co-signature as Attending Physician, Pa Williamson MD I agree with the assessment and c breen plan of care. Signatures: Dispatcher [employer] Shante Loco, HOTEL HOUSEKEEPER-C HOTEL HOUSEKEEPER-Pa Jay MD MD cha Smirch, Shelby, RN RN ss
--- NOTE | 2021-05-05 10:48 | ER ---
Nurse's Notes [facility] Name: Kyleigh Akbar Age: 26 yrs Sex: Female : 1995 Arrival Date: 05/05/2021 Time: 08:10 Bed 14 Private MD: None, None Diagnosis: Coronavirus infection, unspecified Presentation: 05/05 08:19 Chief complaint: Patient states: body aches, cough and congestion that began shortly ss after receiving COVID booster last week. N/V that began 3 days ago and diarrhea that began last night. Coronavirus screen: Client denies travel out of the [place] in the last 14 days. Ebola Screen: Patient denies exposure to infectious person. Patient denies travel to an Ebola-affected area in the 21 days before illness onset. Resp Distress? No respiratory distress is noted at this time. Initial Sepsis Screen: Does the patient meet any 2 criteria? No. Patient's initial sepsis screen is negative. Does the patient have a suspected source of infection? No. Patient's initial sepsis screen is negative. Risk Assessment: Do you want to hurt yourself or someone else? Patient reports no desire to harm self or others. Onset of symptoms was April 2020. 08:19 Method Of Arrival: Ambulatory ss 08:19 Acuity: AGNES 4 ss Triage Assessment: 08:20 General: Appears in no apparent distress. comfortable, well developed, Behavior is cb5 calm, cooperative. Pain: Denies pain. generalized achiness per patient. EENT: No deficits noted. Neuro: No deficits noted. Cardiovascular: No deficits noted. Respiratory: Reports cough that is non-productive, Breath sounds are clear bilaterally. GI: No deficits noted. : No deficits noted. Derm: No deficits noted. Musculoskeletal: No deficits noted. Historical: - Allergies: 08:21 PENICILLINS; ss - PMHx: 08:21 None; ss - PSHx: 08:21 R ankle; ss - Immunization history:: Client reports receiving the 2nd dose of the Covid vaccine. - Social history:: Smoking status: Patient denies any tobacco usage or history of. Screenin:43 Abuse screen: Denies threats or abuse. Denies injuries from another. Nutritional cb5 screening: No deficits noted. Tuberculosis screening: No symptoms or risk factors identified. Fall Risk None identified. Assessment: 08:20 General: Appears in no apparent distress. comfortable, well nourished. Pain: cb5 generalized weakness Pain. Neuro: No deficits noted. Cardiovascular: No deficits noted. Respiratory: Reports cough that is non-productive, Airway is patent. GI: No deficits noted. GI: Patient currently denies. : Denies. EENT: No deficits noted. Derm: No deficits noted. 09:18 Reassessment: No changes from previously documented assessment. cb5 10:41 Reassessment: Patient states feeling better. cb5 Vital Signs: 08:19 Resp 16; Temp 97.6(TE); Weight 86.18 kg; Height 5 ft. 2 in. (157.48 cm); Pain 6/10; ss 08:41 BP 119 / 81; Pulse 68; Resp 16; Temp 98.6; Pulse Ox 100% ; cb5 08:19 Body Mass Index 34.75 (86.18 kg, 157.48 cm) ED Course: 08:10 Patient arrived in ED. as 08:10 None, None is Private Physician. as 08:10 Pa Williamson MD is Attending Physician. [facility] 08:11 Shante Gonzalez FNP-C [facility]. kb 08:15 Arm band placed on Patient placed in an exam room, on a stretcher. ll1 08:21 Triage completed. 08:38 Mini Brooks, RN is Primary Nurse. cb5 08:43 No provider procedures requiring assistance completed. cb5 08:44 Fall risk band placed. Placed in gown. Bed in low position. Call light in reach. Side cb5 rails up X 1. 08:48 COVID-19/FLU A+B (Document "Date of Onset" if Symptomatic) Sent. cb5 11:28 Patient did not have IV access during this emergency room visit. cb5 Administered Medications: No medications were administered Outcome: 10:48 Discharge ordered by . kb 11:27 Discharged to home ambulatory, with family. cb5 11:27 Condition: good 11:27 Condition: stable 11:27 Discharge instructions given to patient. 11:29 Patient left the ED. cb5 Signatures: Shante Gonzalez FNP-C SHOE STITCHER ODD-CkPa Romero MD MD cha Martinez, Amelia as Smirch, Shelby, RN RN Lucy Clarke RN RN ll1 Mini Brooks, RN RN cb5
[2021-05-05 11:35] VITALS: BP 119/81; TEMP 98.6; O2SAT 100
== END 2021-05-05 11:29 | disposition home or self-care (01) ==
LOC: ER 08:07
DX: U07.1 COVID-19 (principal); Z88.0 Allergy status to penicillin
CPT/HCPCS: 0240U; 99283

== ENCOUNTER 2022-02-11 08:18 | Emergency (ER) | payer BC ==
--- OUTSIDE RECORDS SUMMARY | 2022-02-11 08:28 | XMS REPORT | Continuity of Care Document ---
:1995 Author Organization [facility] t Address Formerly [facility], [id number] [place] [address] Care Team Providers Name Role Phone DIAZ MUELLER Yong Primary Care Physician Unavailable EMILY CALI Attending Clinician Unavailable [id number], NOB47 Attending Clinician Unavailable EWA PALENCIA Attending Clinician Unavailable Makeda Morrow Attending Clinician Ryan Cao Attending Clinician Bjorn Bejarano Attending Clinician RYAN PRECIADO Attending Clinician Unavailable BJORN PARKER Attending Clinician Unavailable Tian Trujillo MD Attending Clinician [phone] MAKEDA ALAS Attending Clinician Unavailable DARREN HICKEY Attending Clinician Unavailable Nurse, Suzette Pob Immunization Attending Clinician Unavailable Sarkis Cali DO Attending Clinician SARKIS CALI Attending Clinician Unavailable Claudia Neal MD Attending Clinician CLAUDIA NEAL Attending Clinician Unavailable Abimael Swain MD Attending Clinician Provider, [facility] Attending Clinician Unavailable Montez De Souza Attending Clinician MONTEZ SOLITARIO Attending Clinician Unavailable Unknown, Attending Attending Clinician Unavailable UNKNOWN, ATTENDING Attending Clinician Unavailable Stephania Quinteros MD Attending Clinician Diaz Mueller MD Attending Clinician Pob, Ad[facility] Lab Main Attending Clinician Unavailable Ewa Palencia MD Attending Clinician Doctor Unassigned, [place] Attending Clinician Unavailable AMINTAROLYNNE_Nina Attending Clinician Unavailable Lab, Adc Fam Pob I Attending Clinician Unavailable RERE GASPAR Attending Clinician Unavailable Simran English Attending Clinician [phone] ERVIN, DIAZ [place] Attending Clinician Unavailable MARTÍNEZ DE LEÓN Attending Clinician Unavailable Pob1, Acute [facility] Attending Clinician Unavailable RENNY CENTENO, GRICELDA Attending Clinician SELMA OCONNELL MD Attending Clinician TAMEKA_Nina Admitting Clinician Unavailable Payers Payer Name Policy Type Policy Number Effective Date Expiration Date S annetta BCBS-[place] 2 [id number] 2022 [place] 00:00:00 [place] [id number] 2018 [place] 00:[place] [id number] 2018 [place] 00:00:00 (PPO[place] BCBS OF [id number] [facility] Problems Condition Condition Condition Status Onset Resolution Last Treating Co mments Source Name Details Category Date Date Treatment Clinician Date Obesity Obesity Disease Active Univers (BMI (BMI 9-28 ity of 30-39.9) 30-39.9) 00:00: [place] [facility] Anxiety Anxiety Disease Active Univers 8-12 ity of 00:00: [place] [address] Medical Branch No known No known Disease Metho di active active st problems problems Hospit a l Allergies, Adverse Reactions, Alerts Allergy Allergy Status Severity Reaction(s) Onset Inactive Treating Comm ents Source Name Type Date Date Clinician Penicill Propensi Active Unknown - Uni vers in ty to See comments 8-12 ity of adverse 00:00: [place] reaction 00 Medical s Branch PENICILL DRUG Active Unknown-Cmnt 2018-0 Un david IN INGREDI 812 ity of 00:00: [place] 00 Medical Branch NO KNOWN Drug Active Univers ALLERGIE Class ity of S [place] [facility] PENICILL Allergy Active Moderate Hives Sween y INS to Communi sub[facility] Clinics Family History Family Member Diagnosis Comments Start Date Stop Date Source Natural father Migraines [facility] Natural mother No Known Problems Met [facility] Social History Social Habit Start Date Stop Date Quantity Comments Source Exposure to 2021-11-15 2021-11-25 Not sure [facility] SARS-CoV-2 00:00:00 11:32:00 [place] [facility] (event) Branch Alcohol Comment 2021-08-03 2021-08-03 twice a week [facility] 00:00[facility]00 00:00:00 Hospital Tobacco use and 2021-08-03 2021-08-03 Smokeless tobacco [facility] exposure 00:00:00 00:00:00 non-user Hospital Alcohol intake 2021-08-03 2021-08-03 Current drinker Metho dist 00:00:00 00:00:00 of alcohol Hospital (finding) History [facility] 2019-11-25 2019-11-25 1 University o f Alcohol Frequency 00:00:00 00:00:00 [place] M edical Branch History [facility] 2019-11-25 2019-11-25 99 University o f Alcohol Std 00:00:00 00:00:00 [place] Medical Drinks Branch History [facility] 2019-11-25 2019-11-25 1 University o f Alcohol Binge 00:00:00 00:00:00 [place] [facility] Sex [birth year] At [birth year] Jain 00:00:00 00:00:00 Hospital Smoking Status Start Date Stop Date Source Never smoked tobacco [facility] Medications Ordered Filled Start Stop Current Ordering Indication Dosage Frequency Signature Comments Components Source Medication Medication Date Date Medication? Clinician (SIG) Name Name SERTraline Yes [id number] 100mg Take 1 Univers 100 mg 9-06 tablet by ity of tablet 00:00: mouth in [place] 00 the Medical morning. Branch SERTraline Yes [id number] 100mg Take 1 Univers 100 mg 9-06 tablet by ity of tablet 00:00: mouth in [place] 00 the Medical morning. Branch hydrOXYzine Yes 50mg Q.[id number] Take 50 mg Methodi (ATARAX) 25 4-[id number] mouth [address] MG tablet 11:32: 3D (three) Hospi ta 49 times a l day as needed for itching. sertraline Yes 100mg QD Take 100 Me thodi (ZOLOFT) 2-[address] 100 MG 00:00: mouth Hospita tablet 00 daily. l SERTRALINE 2020-04 Yes [id number] TAKE 1 U nivers 100 mg 1-11 TABLET BY ity of tablet 00:00: MOUTH [place] 00 EVERY DAY Medical Branch SERTRALINE 2020-04 Yes [id number] TAKE 1 U nivers 100 mg 1-11 TABLET BY ity of tablet 00:00: MOUTH [place] 00 EVERY DAY Medical Branch SERTRALINE 2020-04 Yes [id number] TAKE 1 U nivers 100 mg 1-11 TABLET BY ity of tablet 00:00: MOUTH [place] 00 EVERY DAY Medical Branch SERTRALINE 2020-04 Yes [id number] TAKE 1 U nivers 100 mg 1-11 TABLET BY ity of tablet 00:00: MOUTH [place] 00 EVERY DAY Medical Branch SERTRALINE 2020-04- No [id number] TAKE 1 Univers 100 mg 1-11 -06 TABLET BY ity of tablet 00:00: 00:00 MOUTH [place] 00 :00 EVERY DAY Medical Branch albuterol 2020-04- No [id number] 2{puff} Univers (VENTOLIN) 04-22 ity of inhaler 2 18:45: 17:51 [place] Puff 00 :00 [facility] Branch albuterol 2020-04- No [id number] 2{puff} 2 Puff, Univers (VENTOLIN) 04-22 Inhalation it y of inhaler 2 18:45: 17:51 [place] 1 [place] :[place] dose, On Medical [facility] Branch 02/20/21 at 1245, Routine azelastine 2020-04 Yes [id number] 1{spray Use 1 Univers 137 mcg 04-22 } [place] in ity of (0.1 %) 00:00: each [place] nasal spray 00 nostril 2 Med ical (two) Branch times daily. Use in each nostril as directed benzonatate 2020-04 Yes [id number] 200mg Take 2 Univers 100 mg 1-08 [...] Cough. Indication s: cough guaiFENesin 2020-04 Yes [id number] 400mg Take 1 Univers 400 mg 1-08 tablet by ity of tablet 00:00: mouth [place] 00 every 4 Medical (four) Branch hours as needed for Cough. azelastine 2020-04 Yes [id number] 1{spray Use 1 Univers 137 mcg 1-08 } [place] in ity of (0.1 %) 00:00: each [place] nasal spray 00 nostril 2 Med ical (two) Branch times daily. Use in each nostril as directed benzonatate 2020-04 Yes [id number] 200mg Take 2 Univers 100 mg 1-08 [...] Cough. Indication s: cough guaiFENesin 2020-04 Yes [id number] 400mg Take 1 Univers 400 mg 1-08 tablet by ity of tablet 00:00: mouth [place] 00 every 4 Medical (four) Branch hours as needed for Cough. azelastine 2020-04 Yes [id number] 1{spray Use 1 Univers 137 mcg 1-08 } [place] in ity of (0.1 %) 00:00: each [place] nasal spray 00 nostril 2 Med ical (two) Branch times daily. Use in each nostril as directed benzonatate 2020-04 Yes [id number] 200mg Take 2 Univers 100 mg 1-08 [...] Cough. Indication s: cough guaiFENesin 2020-04 Yes [id number] 400mg Take 1 Univers 400 mg 1-08 tablet by ity of tablet 00:00: mouth [place] 00 every 4 Medical (four) Branch hours as needed for Cough. azelastine 2020-04 Yes [id number] 1{spray Use 1 Univers 137 mcg 1-08 } [place] in ity of (0.1 %) 00:00: each [place] nasal spray 00 nostril 2 Med ical (two) Branch times daily. Use in each nostril as directed benzonatate 2020-04 Yes [id number] 200mg Take 2 Univers 100 mg 1-08 [...] Cough. Indication s: cough guaiFENesin 2020-04 Yes [id number] 400mg Take 1 Univers 400 mg 1-08 tablet by ity of tablet 00:00: mouth [place] 00 every 4 Medical (four) Branch hours as needed for Cough. azelastine 2020-04 Yes [id number] 1{spray Use 1 Univers 137 mcg 1-08 } [place] in ity of (0.1 %) 00:00: each [place] nasal spray 00 nostril 2 Med ical (two) Branch times daily. Use in each nostril as directed benzonatate 2020-04 Yes [id number] 200mg Take 2 Univers 100 mg 1-08 [...] Cough. Indication s: cough guaiFENesin 2020-04 Yes [id number] 400mg Take 1 Univers 400 mg 1-08 tablet by ity of tablet 00:00: mouth [place] 00 every 4 Medical (four) Branch hours as needed for Cough. azelastine 2020-04 Yes [id number] 1{spray Use 1 Univers 137 mcg 1-08 } [place] in ity of (0.1 %) 00:00: each [place] nasal spray 00 nostril 2 Med ical (two) Branch times daily. Use in each nostril as directed benzonatate 2020-04 Yes [id number] 200mg Take 2 Univers 100 mg 1-08 [...] Cough. Indication s: cough guaiFENesin 2020-04 Yes [id number] 400mg Take 1 Univers 400 mg 1-08 tablet by ity of tablet 00:00: mouth [place] 00 every 4 Medical (four) Branch hours as needed for Cough. amoxicillin 2020-04- No [id number] 1{tbl} Take 1 Univers -clavulanat 1-08 11-16 tablet by it y of e 00:00: 05:59 mouth 2 [place] (AUGMENTIN) 00 :00 (two) Medical 875-125 mg times Branch per tablet daily for 7 days. bromphenira 2020-04 Yes [id number] 5mL Take 5 mL Univers mine-pseudo 0-18 by mouth 4 it y of ephedrine-D 00:00: (four[place] (BROMFED 00 times Medical DM) 2-30-10 daily as Bran ch mg/5 mL needed for syrup Congestion /Allergies or Cough. bromphenira 2020-04 Yes [id number] 5mL Take 5 mL Univers mine-pseudo 0-18 by mouth 4 it y of ephedrine-D 00:00: (four[place] (BROMFED 00 times Medical DM) 2-30-10 daily as Bran ch mg/5 mL needed for syrup Congestion /Allergies or Cough. bromphenira 2020-04 Yes [id number] 5mL Take 5 mL Univers mine-pseudo 0-18 by mouth 4 it y of ephedrine-D 00:00: (four[place] (BROMFED 00 times Medical DM) 2-30-10 daily as Bran ch mg/5 mL needed for syrup Congestion /Allergies or Cough. bromphenira 2020-04- No [id number] 5mL Take 5 mL Univers mine-pseudo 0-18 11-08 by mouth 4 i ty of ephedrine-D 00:00: 00:00 (four) [place] as M (BROMFED 00 :00 times Medical DM) 2-30-10 daily as Bran ch mg/5 mL needed for syrup Congestion /Allergies or Cough. penicillin 2020-04- No [id number] 500mg Take 1 Univers v potassium 0-14 10-25 tablet by it y of 500 mg 00:00: 04:59 mouth 2 [place] tablet 00 :00 (two) Medical times Branch daily for 10 days. penicillin 2020-04- No [id number] 500mg Take 1 Univers v potassium 0-14 10-25 tablet by it y of 500 mg 00:00: 04:59 mouth 2 [place] tablet 00 :00 (two) Medical times Branch daily for 10 days. penicillin 2020-04- No [id number] 500mg Take 1 Univers v potassium 0-14 10-25 tablet by it y of 500 mg 00:00: 04:59 mouth 2 [place] tablet 00 :00 (two) Medical times Branch daily for 10 days. penicillin 2020-04- No [id number] 500mg Take 1 Univers v potassium 0-14 10-25 tablet by it y of 500 mg 00:00: 04:59 mouth 2 [place] tablet 00 :00 (two) Medical times Branch daily for 10 days. SERTraline Yes [id number] 100mg Take 1 Univers (ZOLOFT) 9-30 tablet by ity of 100 mg 00:00: mouth [place] tablet 00 daily. Medical Branch SERTraline Yes [id number] 100mg Take 1 Univers (ZOLOFT) 9-30 tablet by ity of 100 mg 00:00: mouth [place] tablet 00 daily. Medical Branch methylPREDN 2021-0 Yes Univer s ISolone 4 9-30 ity of mg tablets 00:00: [place] 00 Medical Branch SERTraline 2020-0 Yes [id number] 100mg Take 1 Univers (ZOLOFT) 9-30 tablet by ity of 100 mg 00:00: mouth [place] tablet 00 daily. Medical Branch methylPREDN 2020-0 Yes Univer s ISolone 4 9-30 ity of mg tablets 00:00: [place] 00 Medical Branch SERTraline 2020-0 Yes [id number] 100mg Take 1 Univers (ZOLOFT) 9-30 tablet by ity of 100 mg 00:00: mouth [place] tablet 00 daily. Medical Branch methylPREDN 2020-0 Yes Univer s ISolone 4 9-30 ity of mg tablets 00:00: [place] 00 Medical Branch SERTraline 2020-0 Yes [id number] 100mg Take 1 Univers (ZOLOFT) 9-30 tablet by ity of 100 mg 00:00: mouth [place] tablet 00 daily. Medical Branch methylPREDN 2020-0 Yes Univer s ISolone 4 9-30 ity of mg tablets 00:00: [place] 00 Medical Branch SERTraline 2020-0 Yes [id number] 100mg Take 1 Univers (ZOLOFT) 9-30 tablet by ity of 100 mg 00:00: mouth [place] tablet 00 daily. Medical Branch methylPREDN 2020-0 Yes Univer s ISolone 4 9-30 ity of mg tablets 00:00: [place] 00 Medical Branch methylPREDN 2020-0 Yes Univer s ISolone 4 9-30 ity of mg tablets 00:00: [place] 00 Medical Branch methylPREDN 1-0 Yes Univer s ISolone 4 9-30 ity of mg tablets 00:00: [place] 00 Medical Branch methylPREDN 1-0 Yes Univer s ISolone 4 9-30 ity of mg tablets 00:00: [place] 00 Medical Branch methylPREDN 1-0 Yes Univer s ISolone 4 9-30 ity of mg tablets 00:00: [place] 00 Medical Branch methylPREDN 1-0 Yes Univer s ISolone 4 9-30 ity of mg tablets 00:00: [place] 00 Medical Branch methylPREDN 1-0 Yes Univer s ISolone 4 9-30 ity of mg tablets 00:00: [place] 00 Medical Branch SERTraline 2020- No [id number] 100mg Take 1 Univers (ZOLOFT) 9-30 11-11 tablet by ity o f 100 mg 00:00: 00:00 mouth [place] tablet 00 :00 daily. Medical Branch drospirenon Yes [id number] 1{tbl} Take 1 Univers e-ethinyl 9-28 tablet by ity o f estradioL 00:00: mouth [place] () 00 daily. Medical 3-0.02 mg Branch per tablet drospirenon Yes [id number] 1{tbl} Take 1 Univers e-ethinyl 9-28 tablet by ity o f estradioL 00:00: mouth () 00 daily. Medical 3-0.02 mg Branch per tablet drospirenon Yes [id number] 1{tbl} Take 1 Univers e-ethinyl 9-28 tablet by ity o f estradioL 00:00: mouth [place] () 00 daily. Medical 3-0.02 mg Branch per tablet drospirenon Yes [id number] 1{tbl} Take 1 Univers e-ethinyl 9-28 tablet by ity o f estradioL 00:00: mouth [place] (EDITH) 00 daily. Medical 3-0.02 mg Branch per tablet drospirenon Yes [id number] 1{tbl} Take 1 Univers e-ethinyl 9-28 tablet by ity o f estradioL 00:00: mouth [place] () 00 daily. Medical 3-0.02 mg Branch per tablet drospirenon 2020- Yes [id number] 1{tbl} Take 1 Univers e-ethinyl 9-28 tablet by ity o f estradioL 00:00: mouth [place] () 00 daily. Medical 3-0.02 mg Branch per tablet drospirenon 2020- Yes [id number] 1{tbl} Take 1 Univers e-ethinyl 9-28 tablet by ity o f estradioL 00:00: mouth [place] (EDITH) 00 daily. Medical 3-0.02 mg Branch per tablet drospirenon Yes [id number] 1{tbl} Take 1 Univers e-ethinyl 9-28 tablet by ity o f estradioL 00:00: mouth [place] ([facility],) 00 daily. Medical 3-0.02 mg Branch per tablet drospirenon Yes [id number] 1{tbl} Take 1 Univers e-ethinyl 9-28 tablet by ity o f estradioL 00:00: mouth [place] ([facility],) 00 daily. Medical 3-0.02 mg Branch per tablet drospirenon Yes [id number] 1{tbl} Take 1 Univers e-ethinyl 9-28 tablet by ity o f estradioL 00:00: mouth [place] ([facility],) 00 daily. Medical 3-0.02 mg Branch per tablet drospirenon Yes [id number] 1{tbl} Take 1 Univers e-ethinyl 9-28 tablet by ity o f estradioL 00:00: mouth [place] ([facility],) 00 daily. Medical 3-0.02 mg Branch per tablet drospirenon Yes [id number] 1{tbl} Take 1 Univers e-ethinyl 9-28 tablet by ity o f estradioL 00:00: mouth [place] ([facility],) 00 daily. Medical 3-0.02 mg Branch per tablet azithromyci azithromyci No azithromyc [place] n 250 mg n 250 mg in 250 mg [facility] tablet TAKE tablet TAKE tablet ty 2 TABLETS 2 TABLETS TAKE 2 Hos kush (500 MG) BY (500 MG) BY TABLETS l ORAL ROUTE ORAL ROUTE (500 MG) Clinics ONCE DAILY ONCE DAILY BY ORAL FOR 1 DAY FOR 1 DAY ROUTE ONCE THEN 1 THEN 1 DAILY FOR TABLET (250 TABLET (250 1 DAY THEN MG) BY ORAL MG) BY ORAL 1 TABLET ROUTE ONCE ROUTE ONCE (250 MG) DAILY FOR 4 DAILY FOR 4 BY ORAL DAYS DAYS ROUTE ONCE DAILY FOR 4 DAYS Medrol Medrol No 1dose Medrol [place] (Lex) 4 mg (Lex) 4 mg pk(s) (Lex) 4 mg Communi tablets in tablets in tablets in ty a dose pack a dose pack a dose Hospita Take 1 dose Take 1 dose pack Take l pk by oral pk by oral 1 dose pk Clinics route as route as by oral directed directed route as for 6 days. for 6 days. directed for 6 days. oseltamivir oseltamivir No 1capsul BID oseltamivi [place] 75 mg 75 mg e(s) r 75 mg Communi capsule capsule capsule ty Take 1 Take 1 Take 1 Hospita capsule capsule capsule l twice a day twice a day twice a Clinics by oral by oral day by route as route as oral route directed directed as for 5 days. for 5 days. directed for 5 days. sertraline sertraline No sertraline [place] 50 mg 50 mg 50 mg Communi tablet TAKE tablet TAKE tablet ty 1 TABLET BY 1 TABLET BY TAKE 1 Hospita MOUTH EVERY MOUTH EVERY TABLET BY l DAY DAY MOUTH Clinics EVERY DAY Immunizations Ordered Filled Immunization Date Status Comments [facility] e Immunization Name Name SARS-COV-2 COVID-19 2021-04-25 Completed Unive rsity of PFIZER VACCINE 00:00:00 [facility] SARS-COV-2 COVID-19 2021-04-25 Completed Unive rsity of PFIZER VACCINE 00:00:00 [facility] SARS-COV-2 COVID-19 2021-04-25 Completed Unive rsity of PFIZER VACCINE 00:00:00 [facility] SARS-COV-2 COVID-19 2021-04-25 Completed Unive rsity of PFIZER VACCINE 00:00:00 [facility] SARS-COV-2 SARS-COV-2 2020-07-15 Completed [place] Commun[facility] ty (COVID-19) vaccine, (COVID-19) vaccine, 00:00:00 Hospital Clinics UNSPECIFIED UNSPECIFIED SARS-COV-2 COVID-19 2020-07-14 Completed Unive rsity of PFIZER VACCINE 00:00:00 [facility] SARS-COV-2 COVID-19 2020-07-14 Completed Unive rsity of PFIZER VACCINE 00:00:00 [facility] SARS-COV-2 COVID-19 2020-07-14 Completed Unive rsity of PFIZER VACCINE 00:00:00 [facility] SARS-COV-2 COVID-19 2020-07-14 Completed Unive rsity of PFIZER VACCINE 00:00:00 [facility] SARS-COV-2 COVID-19 2020-07-14 Completed Unive rsity of PFIZER VACCINE 00:00:00 [facility] Branch SARS-COV-2 COVID-19 2020-07-14 Completed Unive rsity of PFIZER VACCINE 00:00:00 [facility] Branch SARS-COV-2 COVID-19 2020-07-14 Completed Unive rsity of PFIZER VACCINE 00:00:00 [facility] SARS-COV-2 COVID-19 2020-07-14 Completed Unive rsity of PFIZER VACCINE 00:00:00 [facility] Branch SARS-COV-2 COVID-19 2020-07-14 Completed Unive rsity of PFIZER VACCINE 00:00:00 [facility] Branch SARS-COV-2 COVID-19 2020-07-14 Completed Unive rsity of PFIZER VACCINE 00:00:00 [facility] Branch SARS-COV-2 COVID-19 2020-07-14 Completed Unive rsity of PFIZER VACCINE 00:00:00 [facility] Branch SARS-COV-2 COVID-19 2020-07-14 Completed Unive rsity of PFIZER VACCINE 00:00:00 [facility] SARS-COV-2 COVID-19 2020-06-23 Completed Unive rsity of PFIZER VACCINE 00:00:00 [facility] SARS-COV-2 COVID-19 2020-06-23 Completed Unive rsity of PFIZER VACCINE 00:00:00 [facility] SARS-COV-2 COVID-19 2020-06-23 Completed Unive rsity of PFIZER VACCINE 00:00:00 [facility] SARS-COV-2 COVID-19 2020-06-23 Completed Unive rsity of PFIZER VACCINE 00:00:00 [facility] Branch SARS-COV-2 COVID-19 2020-06-23 Completed Unive rsity of PFIZER VACCINE 00:00:00 [facility] Branch SARS-COV-2 COVID-19 2020-06-23 Completed Unive rsity of PFIZER VACCINE 00:00:00 [facility] Branch SARS-COV-2 COVID-19 2020-06-23 Completed Unive rsity of PFIZER VACCINE 00:00:00 [facility] SARS-COV-2 COVID-19 2020-06-23 Completed Unive rsity of PFIZER VACCINE 00:00:00 [facility] SARS-COV-2 COVID-19 2020-06-23 Completed Unive rsity of PFIZER VACCINE 00:00:00 [facility] SARS-COV-2 COVID-19 2020-06-23 Completed Unive rsity of PFIZER VACCINE 00:00:00 [facility] SARS-COV-2 COVID-19 2020-06-23 Completed Unive rsity of PFIZER VACCINE 00:00:00 [facility] SARS-COV-2 COVID-19 2020-06-23 Completed Unive rsity of PFIZER VACCINE 00:00:00 [facility] SARS-COV-2 SARS-COV-2 2020-06-23 Completed [facility] ty (COVID-19) vaccine, (COVID-19) vaccine, 00:00:00 Hospital Clinics UNSPECIFIED UNSPECIFIED Vital Signs Vital Name Observation Time Observation Value Comments Source Systolic blood 2021-11-25 16:33:00 131 mm[Hg] Univer sity of pressure [facility] Diastolic blood 2021-11-25 16:33:00 79 mm[Hg] Unive rsity of [facility] Heart rate 2021-11-25 16:33:00 71 /min Univers ty [facility] Body temperature 2021-11-25 16:33:00 36.94 Vivien [facility] Respiratory rate 2021-11-25 16:33:00 16 /min [facility] 2021-11-25 16:33:[address] [facility] Body weight 2021-11-25 16:33:[address] [facility] BMI 2021-11-25 16:33:00 36.47 kg/m2 [facility] Oxygen saturation in 2021-11-25 16:33:00 97 /min University Arterial blood by [facility] Pulse oximetry Branch Systolic blood 2021-02-20 17:32:00 114 mm[Hg] Univer sity of pressure [facility] Diastolic blood 2021-02-20 17:32:00 79 mm[Hg] Unive rsity of pressure [facility] Heart rate 2021-02-20 17:32:00 100 /min Universi ty [facility] Body temperature 2021-02-20 17:32:00 36.89 Vivien Univ ersity of [place] [facility] Respiratory rate 2021-02-20 17:32:00 20 /min Univ ersity of [place] [facility] Body weight 2021-02-20 17:32:00 87.408 kg Universi ty of [place] [facility] BMI 2021-02-20 17:32:00 35.25 kg/m2 Universi ty of [place] [facility] Oxygen saturation in 2021-02-20 17:32:00 97 /min University of Arterial blood by [facility] rita Pulse oximetry Branch Systolic blood 2021-01-30 22:41:00 117 mm[Hg] Univer sity of pressure [place] [facility] Diastolic blood 2021-01-30 22:41:00 85 mm[Hg] Unive rsity of pressure [place] [facility] Heart rate 2021-01-30 22:41:00 99 /min Universi ty of [place] [facility] Body temperature 2021-01-30 22:41:00 37.17 Vivien Univ ersity of [place] [facility] Respiratory rate 2021-01-30 22:41:00 18 /min Univ ersity of [place] [facility] Body height 2021-01-30 22:41:00 157.5 cm Universi ty of [place] [facility] Body weight 2021-01-30 22:41:00 88.905 kg Universi ty of [place] [facility] BMI 2021-01-30 22:41:00 35.85 kg/m2 Universi ty of [place] [facility] Oxygen saturation in 2021-01-30 22:41:00 97 /min University of Arterial blood by [facility] Pulse oximetry Branch Systolic blood 2021-01-26 18:31:00 115 mm[Hg] Univer sity of pressure [place] [facility] Diastolic blood 2021-01-26 18:31:00 77 mm[Hg] Unive rsity of pressure [place] [facility] Heart rate 2021-01-26 18:31:00 80 /min Universi ty of [place] [facility] Body temperature 2021-01-26 18:31:00 36.44 Vivien Univ ersity of [place] [facility] Respiratory rate 2021-01-26 18:31:00 18 /min Univ ersity of [place] [facility] Body height 2021-01-26 18:31:00 157.5 cm Universi ty of [place] [facility] Body weight 2021-01-26 18:31:00 88.905 kg Universi ty of [place] [facility] BMI 2021-01-26 18:31:00 35.85 kg/m2 [facility] Oxygen saturation in 2021-01-26 18:31:00 98 /min University [facility] blood by [facility] Pulse oximetry Branch BP Diastolic 2020-08-17 00:00:00 79 mm[Hg] [facility] Height 2020-08-17 00:00:00 62 [in_i] [facility] BMI (Body Mass 2020-08-17 00:00:00 34.6 kg/m2 [facility] s BP Systolic 2020-08-17 00:00:00 118 mm[Hg] [facility] Body Weight 2020-08-17 00:00:00 3027.2 [oz_av] [facility] s Systolic blood 2021-08-03 16:29:00 115 mm[Hg] [facility] pressure Diastolic blood 2021-08-03 16:29:00 80 mm[Hg] [facility] pressure Heart rate 2021-08-03 16:29:00 66 /min [facility] Body height 2021-08-03 16:29:00 157.5 cm [facility] Body weight 2021-08-03 16:29:00 87.544 kg [facility] BMI 2021-08-03 16:29:00 35.30 kg/m2 [facility] Procedures Procedure Date / Time Performed Performing Clinician Sour e SARS-COV-2 COVID-19 2021-04-25 16:15:15 Doctor Unassigned, [facility],0.3ML,IM Name Medical Branch (PFIZER) XR CHEST 2 VW 2021-01-30 23:26:00 Montez Solitario [facility] POCT GRP A STREP 2021-01-26 00:00:00 Gracia Lizama [facility] (MOLECULAR) Medical Branch XR, chest, 2 view 2020-08-17 00:00:00 [facility] INFLUENZA A & B 2018-06-24 00:00:00 [facility] GROUP A STREP SCREEN 2018-06-24 00:00:00 [facility] GROUP A STREP SCREEN 2018-06-24 00:00:00 [facility] CHEST 2 VIEWS 2018-06-24 00:00:00 [facility] Ankle [facility] Arthroscopy/surgery Hospital Cli nics Plan of Care Planned Activity Planned Date Details Comments Source Future Scheduled Test 2021-12-30 HEPATITIS B VACCINES [facility] 15:40:05 (1 of 3 - 3-dose series) [code = HEPATITIS B VACCINES (1 of 3 - 3-dose series)] Future Scheduled Test 2021-12-30 Hepatitis C Method [facility] 15:40:05 screening (procedure) [code = 302090721] Future Scheduled Test 2021-12-30 [facility] 15:40:05 malignant neoplasm of cervix (procedure) [code = 371559633] Future Scheduled Test 2021-12-30 COVID-19 VACCINE (5 [facility] 15:40:05 - Booster for Pfizer series) [code = COVID-19 VACCINE (5 - Booster for Pfizer series)] Future Scheduled Test 2021-12-30 INFLUENZA VACCINE [facility] 15:40:05 [code = INFLUENZA VACCINE] Diagnostic Test 2020-08-17 rapid SARS CoV 2 Ag, [facility] Pending 00:00:00 QL IA, respiratory Hospital Clinics specimen [code = rapid SARS CoV 2 Ag, QL IA, respiratory specimen] Diagnostic Test 2020-08-17 rapid strep group A, [facility] Pending 00:00:00 throat [code = rapid Hospita Clinics strep group A, throat] Diagnostic Test 2020-08-17 rapid flu (A+B) [facility] mmunity Pending 00:00:00 [code = rapid flu Hospital C linics (A+B)] Instructions [facility] s Encounters Start End Encounter Admission Attending Care Care Encounter Source Date/Time Date/Time Type Type Clinicians Facility Department ID 2022-02-28 2022-02-28 Outpatient LYNDA CALI [id number] Lynda 14:45:00 14:45:00 EMILY whitney 2022-02-13 2022-02-13 Outpatient LYNDA ALANIS [id number] Lynda 14:30:00 14:30:00 VICTORINOB47 Seybol d 2022-01-16 2022-01-16 Outpatient R LISA [facility] [id number] Univers 10:00:00 10:00:00 EWA rm [facility] 2022-01-01 2022-01-01 [facility] 1.2.840.114 [id number] Univers 00:00:00 00:00:00 Makeda HEALTH [id number] it y of [place] [id number] Gurinder as DONNELL?BLEA [phone] [address] MEDICAL OFFICE [facility] 2021-12-19 2021-12-19 [facility]elle[facility] 1.2.840.114 [id number] Univers 00:00:00 00:00:00 Makeda HEALTH [id number] it [facility] 4.2.7.2.686 Gurinder as DONNELL?BLEA [phone] [address] MEDICAL OFFICE [facility] 2021-11-25 2021-11-25 Urgent Ryan Preciado [facility] 1.2.840.1 [id number] Univers 11:20:00 11:40:00 Care Elena Bjorn [facility] [id number] ity of [place] [id number] Gurinder as DONNELL?BLEA [phone] [facility] [address] MEDICAL OFFICE [facility] 2021-11-25 2021-11-25 Outpatient R ILANA [facility] [id number] Univers 11:20:00 11:20:00 RYAN [facility] 2021-11-25 2021-11-25 Outpatient R ELENA [facility] [id number] Univers 10:40:00 10:40:00 BJORN [facility] 2021-08-03 2021-08-03 Office Alexi 1.2.840.1 [id number] Methodi 11:20:00 12:06:04 Visit Tian 84780.1.1 193 [facility] 3.430.2.7 Hospi ta .3.555872 l .8 2021-08-03 2021-08-03 Travel 1.2.840.1 1.2.215.410 [id number] Methodi 00:00:00 00:00:[address] 3.430.2.7 0.2.7.3.698 Ho spita .3.256803 084.8 l .8 2021-08-03 2021-08-03 Outpatient ALEXI [facility] [id number] [place] 00:00:00 00:00:00 TIAN [facility] 2021-07-11 2021-07-11 Outpatient R LISA [facility] [id number] Univers 09:30:00 09:30:00 EWA [facility] 2021-07-06 2021-07-06 Outpatient Heather ALAS [facility] [id number] Univers 15:30:00 15:30:00 MAKEDA [facility] 2021-06-15 2021-06-15 Travel 1.2.840.1 1.2.513.772 [id number] Methodi 00:00:00 00:00:[address] 3.430.2.7 0.2.7.3.698 Ho spita .3.995949 084.8 l .8 2021-05-05 2021-05-05 Outpatient R RUPERTO [facility] [id number] Univers 12:45:00 12:45:00 DARREN sunshine [facility] 2021-04-25 2021-04-25 Imm/Inj Nurse, Adc Pob Immunization [facility] 1.2.840.114 [id number] Univers 09:30:00 09:34:13 Visit Sarkis Cali 350.1.13 .10 [facility] 4.2.7.2.686 Shadi NICOLAS [phone] Sc dical [address] 2021-04-25 2021-04-25 Outpatient R KARELY [facility] [id number] Univers 09:30:00 09:30:00 SARKIS wright [facility] 2021-03-15 2021-03-15 Refadelia [facility] 1.2.840.114 [id number] Univers 00:00:00 00:00:00 Claudia HEALTH 350.1.13.10 it y of [place] 4.2.7.2.686 Gurinder as DONNELL?BLEA [phone] [facility] [address] MEDICAL OFFICE [facility] 2021-02-20 2021-02-20 [facility] [id number] Univers 11:40:00 11:58:41 CLAUDIA rm [facility] 2021-02-20 2021-02-20 Urgent [facility] 1.2.840.114 [id number] Univers 11:28:51 11:48:51 Care Claudia HEALTH 350.1.13.10 it y of [place] 4.2.7.2.686 Gurinder as DONNELL?BLEA [phone] [facility] [address] MEDICAL OFFICE [facility] 2021-02-18 2021-02-18 Alen Sw[facility] 1.2.840.114 [id number] Univers 00:00:00 00:00:00 Abimael HEALTH 350.1.13.10 it y [facility] 4.2.7.2.686 Gurinder as DONNELL?BLEA [phone] Sc deborah [place] 044 [facility] OFFICE [facility] 2021-02-01 2021-02-01 Telephone Provider, [facility] 1.2.840.114 [id number] Univers 00:00:00 00:00:00 Ang Health 350.1.13.10 it y of [facility] [place] 4.2.7.2.686 [place] Donnell?Blea [phone] Sc dicjaqui del rio [address] Medical Office [facility] 2021-01-30 2021-01-30 [facility] 1.2.934.067 [id number] Univers 18:03:23 23:59:00 Encounter [facility] 350.1.13.10 ity of [place] 4.2.7.2.686 Gurinder as Donnell?Blea [phone] Sc dicjaqui del rio [address] Medical Office [facility] 2021-01-30 2021-01-30 Urgent [facility], [facility] 1.2.840.114 [id number] Univers 17:40:09 18:05:31 Care [facility] 350.1.13.10 i ty of [place] 4.2.7.2.686 Gurinder as Donnell?Blea [phone] Sc dical kney [address] Medical Office [facility] 2021-01-30 2021-01-30 [facility] [id number] Univers 17:40:00 17:40:00 MONTEZ ity o f [facility] 2021-01-26 2021-01-26 Urgent Bjorn Parker [facility] 1.2.840.114 [id number] Univers 13:26:48 13:48:23 Care Unknown, [facility] 350..13.10 ity of [place] 4.2.7.2.686 Gurinder as Donnell?Blea [phone] [facility] [address] [facility] Office [facility] 2021-01-26 2021-01-26 Outpatient R UNKNOWN, [facility] [id number] Univers 13:20:00 13:20:00 ATTENDING ity [facility] 2021-01-17 2021-01-17 Telephone Stephania Quinteros [facility] 1.2.840.114 [id number] Univers 00:00:00 00:00:00 Cam [place] 350.1.13.10 i [place].2.[place] [phone] Sc dical [facility] 2021-01-16 2021-01-16 Outpatient R [facility] [id number] Univers 17:15:00 17:15:00 ity of [facility] 2021-01-12 2021-01-12 Alen [facility] 1.2.840.114 [id number] Univers 00:00:00 00:00:00 Wondiful A Health 350.1.13.10 ity [facility] 4.2.7.2.686 Gurinder as Donnell?Blea [phone] [facility] [address] [facility] Office [facility] 2021-01-10 2021-01-10 Capacity Analyst Delisa, Suzette Lab Main [facility] 1.2.8 40.114 [id number] Univers 16:46:43 17:01:43 Visit Adum, Ewa Araujo 350.1.13.10 it[place] of [place].2.[place] [phone] Sc dical nal [facility] 2021-01-10 2021-01-10 Office Adum, [facility] 1.2.840.114 [id number] Univers 14:45:54 16:07:48 Visit Ewa Araujo 350.1.13.10 it[place].2.[place] [phone] Sc dical nal [address] [facility] 2021-01-10 2021-01-10 Outpatient R VASUALBERTO, [facility] [id number] Univers 14:30:00 16:07:48 EWA ity of [facility] 2021-01-10 2021-01-10 Orders Doctor SLIM 1.2.840.114 [id number] Univers 00:00:00 00:00:00 Only Unassigned, KAYCE 350.1.13.10 ity of [place] [facility] 4.2.7.2.686 Gurinder as [phone] [address] 2020-11-30 2020-11-30 Outpatient [facility] 104 [place] 01:01:00 01:01:00 _L 0818 Commun i ty [facility] 2020-11-21 2020-11-21 Refadelia [facility] 1.2.840.114 [id number] Univers 00:00:00 00:00:00 Wondiful A Health 350.1.13.10 ity of [place] 4.2.7.2.686 Gurinder as Professio [phone] Sc dical nal [address] Office [address] [facility] 2020-10-31 2020-10-31 Capacity Analyst Lab, Suzette Hercules I [facility] 1.2. 840.114 [id number] Univers 14:26:04 14:40:40 Visit Thu Alasthia Health 350.1.13.10 ity of [place] 4.2.7.2.686 Gurinder as Professio [phone] Sc dical nal [address] Office [address] [facility] 2020-10-31 2020-10-31 Office Bishop [facility] 1.2.840.114 [id number] Univers 13:35:46 14:29:40 Visit Makeda Miles 350.1.13.10 it [place] 4.2.7.2.686 Gurinder as Peter [phone] Sc dical nal [address] Office [address] [facility] 2020-10-31 2020-10-31 [facility] [id number] Univers 13:30:00 13:30:00 MAKEDA wright [facility] 2020-10-25 2020-10-25 Outpatient [facility] 104 [place] 01:42:00 01:42:00 _L 0713 Commun i ty [facility] 2020-10-24 2020-10-24 Outpatient [facility] 104 [place] 02:30:00 02:30:00 _L 0712 Commun i ty [facility]osp[facility] Clinics 2020-10-15 2020-10-15 Outpatient [facility] 104 [place] 02:15:00 02:15:00 _L 0703 Commun i ty [facility]ospita [facility] Clinics 2020-09-11 2020-09-11 Outpatient [facility] [id number] [place] 01:01:00 01:01:00 _L 0530 Commun i ty Hospita [facility] Clinics 2020-09-09 2020-09-09 Outpatient [facility] [id number] Univers 08:15:00 08:15:00 RERE wright [facility] 2020-08-18 2020-08-18 Outpatient [facility] [id number] [place] 12:18:00 12:18:00 _L 0506 Commun i ty Hospita [facility] Clinics 2020-08-17 2020-08-17 Outpatient [facility] [id number] [place] 12:36:00 12:36:00 _L 0505 Commun i ty Hospita l Clinics 2020-08-17 2020-08-17 Simran Reddy [facility] [place] [facility] [place] 202 [id number] [place] 00:00:00 00:00:00 SAIMA Peguero: Hospital - ty [address] [facility], [facility] Clinics [address], [place] [address] , Ph. 2020-08-17 2020-08-17 Outpatient Tameka [facility] [id number] 00:00:00 00:00:00 , Simran [id number] Maureen [phone] [id number] 2020-08-12 2020-08-12 Outpatient Heather MUELLER [facility] [id number] Univers 16:30:00 16:30:00 WONDIFUL ity o f [facility] 2020-08-12 2020-08-12 Telemedici [facility] 1.2.840.114 [id number] Univers 14:58:01 15:13:01 ne Visit Wondiful A Health 350.1.13.10 ity of [place] 4.2.7.2.686 Gurinder as Professio [phone] [address] Office [address] [facility] 2020-07-14 2020-07-14 Outpatient Heather [facility] [id number] Univers 08:30:00 08:30:00 MARTÍNEZ ity [facility] 2020-06-23 2020-06-23 Outpatient [facility] [id number] Univers 08:30:00 08:30:00 ity [facility] 2019-12-16 2019-12-16 Refadelia [facility] 1.2.840.114 [id number] Univers 00:00:00 00:00:00 Wondiful A [place] 350.1.13.10 ity of [place].2.[place] [phone] [place] [address] [address] 2019-11-25 2019-11-25 Outpatient Heather [facility] [id number] Univers 15:15:00 15:15:00 WONDIFUL ity o f [facility] 2019-11-25 2019-11-25 Telemedici Ervin [facility] 1.2.840.114 [id number] Univers 08:01:58 08:31:58 ne Visit Diaz Araujo 350.1.13.10 ity of [place].2.7.2.686 [place] [phone] [address] 2019-11-23 2019-11-23 Urgent Pob1, Acute Care Clinic [facility] 1. 2.840.114 [id number] Univers 08:48:10 09:39:57 Care Makeda [facility] 350.1.13.10 ity of [place] 4.2.7.2.686 Gurinder as Professio [phone] [address] Office [facility] 2019-11-23 2019-11-23 Outpatient R [facility] [id number] Univers 08:40:00 08:40:00 ity of [facility] 2019-11-23 2019-11-23 Outpatient R [facility] [id number] Univers 08:40:00 08:40:00 ity of [facility] 2019-10-26 2019-10-26 Urgent Pob1, Acute Care Clinic [facility] 1. 2.840.114 [id number] Univers 14:30:53 14:50:53 Care RociochristelleMakeda Health 350.1.13.10 ity of [place] 4.2.7.2.686 Gurinder as Professio [phone] [address] Office [facility] 2019-10-26 2019-10-26 Outpatient [facility] [id number] Univers 14:20:00 14:20:00 MAKEDA ity of [facility] 2018-11-24 2018-11-24 Office [facility] 1.2.840.114 [id number] Univers 13:55:59 14:31:14 Visit Makeda [employer] 350.1.13.10 it y of [place] 4.2.7.2.686 Gurinder as Professio [phone] [address] Office [facility] 2018-11-24 2018-11-24 Orders Doctor SMALLS 1.2.840.114 [id number] Univers 00:00:00 00:00:00 Only Unassigned, KAYCE 350.1.13.10 ity of [place] [facility] 4.2.7.2.686 Gurinder as [phone] [place] [address] [address] 2018-11-24 2018-11-24 Letter Bishop, [facility] 1.2.840.114 [id number] Univers 00:00:00 00:00:00 (Out) [facility] 350.1.13.10 it y of [place] 4.2.7.2.686 Gurinder as Peter [phone] Sc dical nal [address] 2018-06-25 2018-06-25 [address] RENNY, [facility] [id number] [place] 14:15:00 16:13:00 Emergency [facility]ICELDA [facility] 2018-06-24 2018-06-[address] [facility] [id number] [place] 02:36:00 04:04:00 Emergency [facility] Results Test Description Test Time Test Comments Results Result Comments Source POCT GRP A STREP (MOLECULAR) 2021-01-26 18:35:00 Test Item Value Reference Range Interpretation Comme nts POCT GP A STREP (test code = pos Negative - Negative 43872-0) KELSEY (test code = KELSEY) accurate development and interpretation of all internal controls Lab Interpretation (test code = Abnormal 46758-5) [facility] flu (A+B)2020-08-17 10:48:00 Test Item Value Reference Range Interpretation Comments FLU A (test code = FLU A) positive FLU B (test code = FLU B) negative [facility] Ag [Presence] in Respiratory specimen by Rapid [id number] 10:48:00 Test Item Value Reference Range Interpretation Comments SARS CoV 2 (test code = SARS CoV 2) negative [facility] strep group A, [id number] 10:40:00 Test Item Value Reference Range Interpretation Comments Strep (test code = Strep) negative [facility] Type A [id number] 03:14:00 Test Item Value Reference Range Interpretation Comments Influenza Type A Antigen (test code NEGATIVE NEGATIVE = 32194-9) [facility] [id number] 03:14:00 Test Item Value Reference Range Interpretation Comments Influenza Type B Antigen (test code NEGATIVE NEGATIVE = 46453-8) *This test method is capable of detecting both viable andnon-viable influenza particles. Performancedepends on theantigen load and may not correlate with other diagnosticmethods performed on the same specimen. *Results of the FLUA+B test should be correlated with theclinical history, epidemiological data and other dataavailable to the clinician evaluating the patient.[facility]flu[facility] Type A [id number] 03:14:00 Test Item Value Reference Range Interpretation Comments Influenza Type A Antigen (test code NEGATIVE NEGATIVE = 46320-8) [facility] B [id number] 03:14:00 Test Item Value Reference Range Interpretation Comments Influenza Type B Antigen (test code NEGATIVE NEGATIVE = 96725-7) *This test method is capable of detecting both viable andnon-viable influenza particles. Performancedepends on theantigen load and may not correlate with other diagnosticmethods performed on the same specimen. *Results of the FLUA+B test should be correlated with theclinical history, epidemiological data and other dataavailable to the clinician evaluating the patient.[facility] HospitalGroup A Streptococcus [id number] 03:12:00 Test Item Value Reference Range Interpretation Comments Group A Streptococcus Screen (test NEGATIVE NEGATIVE code = Group A Streptococcus Screen) Negative screens will be confirmed by culture. Please seeseparate microbiology report for these results.[facility] HospitalIS SPECIMEN BLOODY OR MUCOID?2018-06-24 03:12:00 Test Item [...] together with other clinical informationavailable to the physician.[facility] HospitalGroup A Streptococcus [id number] 03:12:00 Test Item Value Reference Range Interpretation Comments Group A Streptococcus Screen (test NEGATIVE NEGATIVE code = Group A Streptococcus Screen) Negative screens will be confirmed by culture. Please seeseparate microbiology report for these results.[facility] HospitalIS SPECIMEN BLOODY OR MUCOID?2018-06-24 03:12:00 Test Item [...] together with other clinical informationavailable to the physician.[facility]
[2022-02-11 08:51] LABS: Urine Blood Trace-intact (Negative); Urine Glucose Negative (Negative); Urine Protein Negative (Negative); Urine Specific Gravity 1.025 (1.005-1.030); Urine pH 5.5 (5.0-7.0)
[2022-02-11 09:04] LABS: Absolute Lymphocytes (CBC) 2.3 K/uL (0.7-4.9); Hematocrit 37.9 % (36.0-45.0); MCV 83.7 fL (80-100); MPV 8.4 fL (7.6-11.3); RBC Red Blood Cell Count 4.53 M/uL (3.86-4.86)
[2022-02-11 09:30] LABS: Potassium 3.3 mmol/L (3.5-5.1)
[2022-02-11 10:13] LABS: Urine Specific Gravity/Preg 1.025 (1.005-1.030)
--- NOTE | 2022-02-11 10:41 | RAD REPORT ---
EXAM DESCRIPTION: US - Transvaginal OB - 02/11/2022 10:23 am CLINICAL HISTORY: with pelvic pain COMPARISON: None. FINDINGS: The uterus measures 8 x 4 x 4 centimeters. A gestational sac is present within the endome trium measuring 7.5 millimeters. pole with crown-rump length 2 millimeters. Cardiac activity no t seen. A 2.8 centimeter right ovarian cyst. Blood flow is present to the right ovary. Left ovary normal in size and echotexture The right and left adnexa unremarkable Small amount of free fluid IMPRESSION: Intrauterine with an estimated gestational age 5 weeks 0 days. This may repres ent a viable intrauterine in which the cardiac activity is not yet seen secondary to the ea rly gestation. It is recommended that the patient have a followup endovaginal sonogram in 1 week for re-evaluation. 2.8 centimeter right ovarian cyst
--- NOTE | 2022-02-11 11:14 | ER ---
Nurse's Notes [facility] Name: Kyleigh Akbar Age: 26 yrs Sex: Female : 1995 Arrival Date: 02/11/2022 Time: 08:22 Bed 7 Private MD: Diagnosis: Less than 8 weeks gestation of ;Lower abdominal pain, unspecified-cramping Presentation: 02/11 08:31 Chief complaint: Patient states: Cramping x 4 days, no bleeding. Coronavirus screen: At [facility] this time, the client does not indicate any symptoms associated with coronavirus-19. Ebola Screen: No symptoms or risks identified at this time. Initial Sepsis Screen: Does the patient meet any 2 criteria? No. Patient's initial sepsis screen is negative. Does the patient have a suspected source of infection? No. Patient's initial sepsis screen is negative. Risk Assessment: Do you want to hurt yourself or someone else? Patient reports no desire to harm self or others. Onset of symptoms was February 07, 2022. 08:31 Method Of Arrival: Ambulatory [facility] 08:31 Acuity: AGNES 3 jl7 Triage Assessment: 08:32 General: Appears in no apparent distress. uncomfortable, Behavior is calm, cooperative, jl7 appropriate for age. Pain: Complains of pain in right lower quadrant and left lower quadrant Pain currently is 5 out of 10 on a pain scale. at worst was 9 out of 10 on a pain scale. Quality of pain is described as crampy. RN BURN: 08:32 3, Full Term 0, Premature 0, 2, Living 0, LMP 01/03/2022 jl7 12:30 3, 2, Living 0, LMP 01/03/2022 kb Historical: - Allergies: 08:32 No Known Allergies; jl7 - Home Meds: 08:32 sertraline oral [Active]; Hydroxyzine Oral [Active]; jl7 - PMHx: 08:32 Anxiety; Depressive disorder; jl7 - PSHx: 08:32 R ankle; jl7 - Immunization history:: Adult Immunizations unknown. - Social history:: Smoking status: unknown. Screenin:00 Abuse screen: Denies threats or abuse. Denies injuries from another. Nutritional jl7 screening: No deficits noted. Tuberculosis screening: No symptoms or risk factors identified. Fall Risk IV access (20 points). Total Mijares Fall Scale indicates No Risk (0-24 pts). Assessment: 08:45 General: Appears in no apparent distress. uncomfortable, Behavior is calm, cooperative, jl7 appropriate for age. Pain: Complains of pain in right lower quadrant and left lower quadrant Pain currently is 5 out of 10 on a pain scale. Quality of pain is described as crampy. Neuro: Level of Consciousness is awake, alert, obeys commands, Oriented to person, place, time, situation. Cardiovascular: Patient's skin is warm and dry. Respiratory: Airway is patent Respiratory effort is even, unlabored, Respiratory pattern is regular, symmetrical. Derm: Skin is pink, warm \T\ dry. 09:52 Reassessment: US at bedside. jl7 Vital Signs: 08:31 BP 109 / 69; Pulse 88; Resp 17; Temp 99; Pulse Ox 98% ; Weight 90.72 kg; Height 5 ft. 2 jl7 in. (157.48 cm); 11:15 BP 106 / 71; Pulse 85; Resp 15; Pulse Ox 99% ; jl7 08:31 Body Mass Index 36.58 (90.72 kg, 157.48 cm) jl7 ED Course: 08:22 Patient arrived in ED. as 08:23 Shante Gonzalez FNP-C [facility]. kb 08:23 Savage El MD is Attending Physician. kb 08:31 Aldo Sanz RN is Primary Nurse. jl7 08:32 Triage completed. jl7 08:32 Arm band placed on right wrist. jl7 09:00 Patient has correct armband on for positive identification. Placed in gown. Bed in low jl7 position. Call light in reach. Side rails up X 1. 09:00 Initial lab(s) drawn, by me, sent to lab. Urine collected: clean catch specimen, clear. jl7 Inserted saline lock: 20 gauge in right antecubital area, using aseptic technique. Blood collected. 10:25 US Transvaginal Ob In Process Unspecified. EDMS 11:20 No provider procedures requiring assistance completed. IV discontinued, intact, jl7 bleeding controlled, No redness/swelling at site. Pressure dressing applied. Administered Medications: No medications were administered Medication: 11:20 VIS not applicable for this client. jl7 Outcome: 11:13 Discharge ordered by . efrem 11:20 Discharged to home ambulatory. jl7 11:20 Condition: stable 11:20 Discharge instructions given to patient, Instructed on discharge instructions, follow up and referral plans. Demonstrated understanding of instructions, follow-up care. 11:20 Patient left the ED. jl7 Signatures: Dispatcher [employer] EDShante Martinez, DRAG CAR RACER-C OLIVER-Amber Canseco Jahala RN RN jl7 Corrections: (The following items were deleted from the chart) 08:33 08:32 Allergies: PENICILLINS; jl7 jl7
--- NOTE | 2022-02-11 11:14 | EDPHYS ---
Physician Documentation [facility] Name: Kyleigh Akbar Age: 26 yrs Sex: Female : 1995 Arrival Date: 02/11/2022 Time: 08:22 Bed 7 Private MD: ED Physician Savage El HPI: 02/11 12:29 This 26 yrs old Black Female presents to ER via Ambulatory with complaints of Pelvic kb Pain - unk wks preg. 12:30 The patient presents to the emergency department with abdominal pain, of the suprapubic kb area, that started 4 day(s) ago, described as crampy. course: care: none, Leakage of Fluid: none appreciated, Ultrasound: the patient has not had an ultrasound. Previous pregnancies: in previous pregnancies patient has had. Associated signs and symptoms: Pertinent positives: abdominal pain, Pertinent negatives: vaginal bleeding. The patient has not experienced similar symptoms in the past. The patient has not recently seen a physician. 12:31 Pt reports lower abd cramping for 4 days. Denies vaginal bleeding/discharge or urinary kb symptoms. States she had a positive test 2 weeks ago. 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 - Social history:: Smoking status: unknown. ROS: 12:29 Constitutional: Negative for fever, chills, and weight loss. kb 12:29 Abdomen/GI: Positive for abdominal cramps. 12:29 All other systems are negative. Exam: 12:29 Constitutional: This is a well developed, well nourished patient who is awake, alert, kb and in no acute distress. Head/Face: Normocephalic, atraumatic. ENT: Moist Mucous membranes Cardiovascular: Regular rate and rhythm with a normal S1 and S2. No gallops, murmurs, or rubs. No pulse deficits. Respiratory: Respirations even and unlabored. No increased work of breathing. Talking in full sentences Abdomen/GI: Soft, non-tender. No distention Skin: Warm, dry with normal turgor. Normal color. MS/ Extremity: Pulses equal, no cyanosis. Neurovascular intact. Full, normal range of motion. Neuro: Awake and alert, GCS 15, oriented to person, place, time, and situation. Moves all extremities. Normal gait. Vital Signs: 08:31 BP 109 / 69; Pulse 88; Resp 17; Temp 99; Pulse Ox 98% ; Weight 90.72 kg; Height 5 ft. 2 jl7 in. (157.48 cm); 11:15 BP 106 / 71; Pulse 85; Resp 15; Pulse Ox 99% ; jl7 08:31 Body Mass Index 36.58 (90.72 kg, 157.48 cm) jl7 MDM: 08:23 Patient medically screened. kb 12:29 Data reviewed: vital signs, nurses notes. Data interpreted: Pulse oximetry: on room air kb is 99 %. Interpretation: normal. Counseling: I had a detailed discussion with the patient and/or guardian regarding: the historical points, exam findings, and any diagnostic results supporting the discharge/admit diagnosis, lab results, radiology results, the need for outpatient follow up, an OB/Gyne specialist, to return to the emergency department if symptoms worsen or persist or if there are any questions or concerns that arise at home. 02/11 08:28 Order name: Abo/rh Typing; Complete Time: 09:45 kb 02/11 08:28 Order name: Basic Metabolic Panel; Complete Time: 09:45 kb 02/11 08:28 Order name: CBC with Diff; Complete Time: 09:45 kb 02/11 08:28 Order name: Quantitative Hcg; Complete Time: 09:45 kb 02/11 08:51 Order name: Urine Dipstick-Ancillary; Complete Time: 09:45 EDMS 02/11 09:35 Order name: Urine --Ancillary (enter results); Complete Time: 10:14 eb 02/11 08:28 Order name: US Transvaginal Ob; Complete Time: 10:56 kb 02/11 08:28 Order name: IV Saline Lock; Complete Time: 09:17 kb 02/11 08:28 Order name: Labs collected and sent; Complete Time: 09:17 kb 02/11 08:28 Order name: NPO; Complete Time: 08:35 kb 02/11 08:28 Order name: Urine Dipstick-Ancillary (obtain specimen); Complete Time: 09:17 kb 02/11 08:28 Order name: Urine Test (obtain specimen); Complete Time: 09:17 kb Administered Medications: No medications were administered Disposition: 16:53 Co-signature as Attending Physician, Savage El MD I agree with the assessment and kdr plan of care. Disposition Summary: 02/11/22 11:13 Discharge Ordered Location: Home kb Condition: Stable kb Diagnosis - Less than 8 weeks gestation of kb - Lower abdominal pain, unspecified - cramping kb Followup: kb - With: Emergency Department - When: As needed - Reason: Worsening of condition Followup: kb - With: Private Physician - When: 2 - 3 days - Reason: Recheck today's complaints, Continuance of care, Re-evaluation by your physician Discharge Instructions: - Discharge Summary Sheet kb - First Trimester of , [id number] kb - Abdominal Pain During , [id number] kb Forms: - Medication Reconciliation Form kb - Thank You Letter kb - Antibiotic Education kb - Prescription Opioid Use kb Signatures: Dispatcher [employer] EDMS Shante Gonzalez, BIOMETRICS TECHNICIAN-C BIOMETRICS TECHNICIAN-Savage Dominguez MD MD [facility] Aldo Sanz RN RN jl7 Corrections: (The following items were deleted from the chart) 08:33 08:32 Allergies: PENICILLINS; jl7 jl7
[2022-02-11 11:31] VITALS: BP 109/69; TEMP 99; O2SAT 98
== END 2022-02-11 11:20 | disposition home or self-care (01) ==
LOC: ER 08:18
DX: O26.891 Other specified pregnancy related conditions, first trimester (principal); O99.341 Other mental disorders complicating pregnancy, first trimester; F34.1 Dysthymic disorder; Z3A.01 Less than 8 weeks gestation of pregnancy
CPT/HCPCS: 36415; 76817; 80048; 81003; 81025; 84702; 85025; 86900; 86901; 99283